=== PATIENT | female | born 1955 | race Caucasian/White ===

== ENCOUNTER 2021-02-25 18:47 | Inpatient (IN) ==
[2021-02-25] MEDS ORDERED: MoRPHine SULFATE 4 MG/ML 1 ML CARP\\VIAL IV STA ×2 (19:08→20:45)
[2021-02-25] MEDS ORDERED: SODIUM CHLORIDE 0.9% 500 ML IV STA (19:08)
--- NOTE | 2021-02-25 19:15 | Emergency Department Note ---
Impression & Plan Fall, Leg paresthesia, Leukocytosis ED Provider Note NAME: AARON LUTZ AGE: 65 SEX: F : 1955 ARRIVES VIA: Walk-In INFORMANT: Patient ED PROVIDER(S): Shahriar Zee DO CHIEF COMPLAINT: Hip pain and back pain HPI: Patient is a 65-year-old female who presents to ER for lower back pain and right hip pain. Patient notes that she fell today as her legs were too weak. She has been following with Dr. Daniel. Patient had 2 MRIs recently. Her right leg has gone completely numb in the past 2 weeks. She denies hitting her head or neck. No head or neck pain. No chest pain. No shortness of breath. Pain is with flexion extension of the right hip. Denies any numbness in the groin. Able to urinate and move bowels. ROS: See above HPI for pertinent positives & negatives. A total of 10 systems reviewed and were otherwise negative. PAST MEDICAL HISTORY:See Below PAST SURGICAL HISTORY:See Below FAMILY HISTORY:See Below SOCIAL HISTORY:See Below HOME MEDICATIONS:See Below ALLERGIES:See Below VITALS:See Below PHYSICAL EXAMINATION: GENERAL: Sitting up in bed, alert, well appearing, well nourished, no distress, non-toxic HEAD: NC/AT EYE EXAM: normal conjunctiva. PERRL and EOM's grossly intact. OROPHARYNX: no exudate, no erythema, lips, buccal mucosa, and tongue normal and mucous membranes are moist NECK: supple, no nuchal rigidity, no adenopathy, non-tender LUNGS: Clear to auscultation. Normal chest wall mechanics HEART: no murmurs, S1 normal and S2 normal ABDOMEN: abdomen soft, non-tender, normo-active bowel sounds, no masses, no re bound or guarding. BACK: Back is symmetrical on inspection and there is no deformity, midline tende rness in lower lumbar region UPPER EXTREMITIES: upper extremities are grossly normal. LOWER EXTREMITIES: Flexion and extension of the hips, knees, ankles, and EHL 5/5 bilaterally with exception of the right hip. Unable to evaluate secondary to pain. Gross sensation is intact. DPs are 2/4 bilateral. Unable to obtain patellar and Achilles reflexes NEURO EXAM: Normal sensorium, cranial nerves II-XII grossly intact, normal speech, no gross weakness of arms, no gross weakness of legs. MEDICAL DECISION MAKING: Patient is a six 5-year-old female who presents ER for chronic back pain associated with new worsening right leg pain and weakness. She tried to get up out of a chair today and she fell onto her right leg. She has had new numbness which is been present for the past 2 weeks in the right leg. IV was established blood work obtained. Labs show leukocytosis 20,000. No significant anemia. BMP slightly elevated BUN which I favor secondary to the steroids and I favor this likely cause of leukocytosis. No fevers. CT lumbar spine and x-ray of the pelvis and hip were unremarkable. Discussed with Cheyenne Fajardo from your [facility] as this patient already follows with them. Agreeable to following tomorrow morning. Discussed with Dr. Avelar for further evaluation. Observation Status: Indication: back pain Patient with no relevant family history, was seen first at 1840 hrs and was necessary in order to determine medical stability and avoid unnecessary admission. Upon reevaluation, 4.5 hours of observation revealed that the patient should be admitted. She after multiple doses of narcotics was still unable to get up and move. Disposition date and time 02/25/21 at 2250. Triage Nursing notes reviewed. Limited review of prior medical records performed Vital Signs: reviewed and remarkable for no significant abnormalities Differential diagnosis: Differential diagnoses includes but is not limited to lumbar radiculopathy, kidney stone, muscle strain, facture, cauda equina, mass, and disc herniation. ER treatment provided: See below Diagnostics interpreted by me: ECG: none Cardiac Monitoring: An order was placed for continuous cardiac monitoring. The monitor shows a rate of 70 with sinus rhythm. Laboratory studies: As stated above and show below. Imaging studies: CT lumbar spine was unremarkable X-ray of the hip and pelvis was unremarkable Consultation(s): As discussed above Procedures: none Critical Care: None Past Med/Surg History Social History Smoking Status: Never smoker Feels Safe at Home: Yes Allergies Allergies Allergy/AdvReac Type Severity Reaction Status Date / Time Sulfa (Sulfonamide AdvReac NAUSEA/VOMI Verified 02/25/21 19:47 Antibiotics) TING Home Meds Home Medications Medication Instructions Recorded Confirmed Otc Sleep Aide 1 tab PO HS PRN 02/25/21 02/25/21 acetaminophen [Tylenol Arthritis] 1,300 mg PO Q12H 02/25/21 02/25/21 baclofen 10 mg PO TID 02/25/21 02/25/21 chlorthalidone 25 mg PO DAILY 02/25/21 02/25/21 diclofenac sodium 75 mg PO BID 02/25/21 02/25/21 gabapentin 300 mg PO QAM 02/25/21 02/25/21 gabapentin 600 mg PO HS 02/25/21 02/25/21 insulin NPH and regular human 40 unit SUBCUT BID 02/25/21 02/25/21 [Novolin 70/30 U-100 Insulin] liraglutide [Victoza 2-Dedrick] 1.8 mg SUBCUT DAILY 02/25/21 02/25/21 [id number]-nscuybhj-[id number] 1 tab PO DAILY 02/25/21 02/25/21 [Centrum Silver] pioglitazone 15 mg PO DAILY 02/25/21 02/25/21 prednisone 20 mg PO .TAPER UD 02/25/21 02/25/21 simvastatin 20 mg PO QPM 02/25/21 02/25/21 Results & Data (ED) Vital Signs Vital Signs - 24 hr 02/25/21 18:50 02/25/21 20:48 Temperature 36.4 C L 36.5 C Temperature Source Temporal Artery Scan Oral Pulse Rate 94 H 74 Pulse Rhythm Regular Respiratory Rate 18 14 Respiratory Depth Normal Blood Pressure 131/82 Blood Pressure [Left Arm] 154/74 H Blood Pressure Mean 98 Blood Pressure Mean [Left Arm] 100 Blood Pressure Position Sitting Blood Pressure Position [Left Arm] Sitting Pulse Oximetry 95 95 Oxygen Delivery Method Room Air Room Air Sepsis Recent Fever Within 48 Hours No Sepsis New/Unexplained Change in Mental Status No Sepsis Action Taken by Nursing No Action Required Laboratory Data Result diagrams: 02/25/21 19:30 02/25/21 19:30 Lab Results 02/25/21 02/25/21 02/25/21 Range/Units 19:30 19:30 21:55 WBC 20.05 H (4.8-10.8) K/uL RBC 5.15 (4.2-5.4) M/uL Hgb 16.7 H (12.0-16.0) g/dL Hct 47.6 H (37-47) % MCV 92.4 (80-100) fL MCH 32.4 (25-34) pg MCHC 35.1 (32-36) g/dL RDW Std Deviation 41.7 (36.4-46.3) fL RDW Coeff of Kinga 12.4 (11.5-14.5) % Plt Count 405 H (130-400) K/uL MPV 10.5 H (7.4-10.4) fL Immature Gran % (Auto) 0.6 % Neut % (Auto) 72.4 % Lymph % (Auto) 19.8 % [place] % (Auto) 6.6 % Eos % (Auto) 0.6 % Baso % (Auto) 0.0 % Neut # (Auto) 14.50 H (1.4-6.5) K/uL Lymph # (Auto) 3.97 H (1.2-3.4) K/uL [place] # (Auto) 1.33 H (0.11-0.59) K/uL Eos # (Auto) 0.12 (0-0.5) K/uL Baso # (Auto) 0.01 (0-0.2) K/uL Immature Gran # (Auto) 0.12 H (0.00-0.02) K/uL Sodium 136 (136-145) mmol/L Potassium (3.5-5.1) mmol/L Chloride 96 L (98-107) mmol/L Carbon Dioxide 31 (21-32) mmol/L Anion Gap 9.0 (3-11) BUN 43 H (7-18) mg/dl Creatinine 1.22 H (0.6-1.2) mg/dl Est Cr Clr Drug Dosing Not Reportable Est GFR ( Amer) 53.1 ml/min Est GFR (Non-Af Amer) 45.8 ml/min BUN/Creatinine Ratio 35.6 H (10-20) Glucose 270 H (70-99) mg/dl Calcium 9.8 (8.5-10.1) mg/dl COVID-19 Eval Order Covid19 at [facility] Administered Medications Discontinued Medications Sodium Chloride (Nss) 500 mls @ 999 mls/hr IV .Q31M STA Stop: 02/25/21 19:38 Last Infusion: 02/25/21 20:37 Dose: 0 mls/hr Documented by: [id number] Admin: 02/25/21 20:00 Dose: 999 mls/hr Documented by: [id number] Morphine Sulfate (Morphine Sulfate 4 Mg/Ml 1 Ml Carp\Vial) 4 mg IV NOW STA Stop: 02/25/21 19:09 Last Admin: 02/25/21 19:47 Dose: 4 mg Documented by: [id number] Morphine Sulfate (Morphine Sulfate 4 Mg/Ml 1 Ml Carp\Vial) 4 mg IV NOW STA Stop: 02/25/21 20:46 Last Admin: 02/25/21 20:58 Dose: 4 mg Documented by: [id number] Imaging Data Radiologist's Impression: Hip/Pelvis X-Ray 02/25/21 19:07 XR hip RT 2V w pelvis CLINICAL HISTORY: Right hip pain status post trauma COMPARISON: None. DISCUSSION: There are osteoarthritic changes present. No acute fractures or dislocations are visualized. There is a catheter projected over the left lower quadrant, possibly representing a peritoneal catheter. IMPRESSION: 1. No acute fractures or dislocations identified. ACT 112: Negative or not required by law. Electronically signed by: Bc Sanford M.D. 02/25/2021 7:46 PM Discharge Plan Visit Data Chief Complaint: Fall Stated Complaint: FALL ED Provider: Shahriar Zee Discharge Problem: Fall, Leg paresthesia, Leukocytosis Forms Stand Alone Forms: My [facility] Prescriptions Prescriptions: No Action pioglitazone 15 mg tablet 15 mg PO DAILY RF: 0 prednisone 20 mg tablet 20 mg PO .TAPER UD RF: 0 Novolin 70/30 U-100 Insulin 100 unit/mL (70-30) Suspension 40 unit SUBCUT BID RF: 0 chlorthalidone 25 mg tablet 25 mg PO DAILY RF: 0 acetaminophen [Tylenol Arthritis] 650 mg Tablet Extended Release 1,300 mg PO Q12H RF: 0 baclofen 10 mg tablet 10 mg PO TID RF: 0 simvastatin 20 mg tablet 20 mg PO QPM RF: 0 gabapentin 300 mg capsule 600 mg PO HS RF: 0 gabapentin 300 mg capsule 300 mg PO QAM RF: 0 diclofenac sodium 75 mg tablet,delayed release (DR/EC) 75 mg PO BID RF: 0 Centrum Silver Tablet 1 tab PO DAILY RF: 0 Victoza 2-Dedrick 0.6 mg/0.1 mL (18 mg/3 mL) Pen Injector 1.8 mg SUBCUT DAILY RF: 0 Otc Sleep Aide 1 tab PO HS PRN (Reason: Sleep) RF: 0 Discharge Problem: Fall Qualifiers: Encounter type: initial encounter Qualified Code(s): W19.XXXA - Unspecified fall, initial encounter Leukocytosis Qualifiers: Leukocytosis type: unspecified Qualified Code(s): D72.829 - Elevated white blood cell count, unspecified
--- NOTE | 2021-02-25 19:47 | XRay Report ---
XR hip RT 2V w pelvis CLINICAL HISTORY: Right hip pain status post trauma COMPARISON: None. DISCUSSION: There are osteoarthritic changes present. No acute fractures or dislocations are visualiz ed. There is a catheter projected over the left lower quadrant, possibly representing a peritoneal ca theter. IMPRESSION: 1. No acute fractures or dislocations identified. ACT 112: Negative or not required by law. Electronically signed by: Bc Sanford M.D. 02/25/2021 7:46 PM
[2021-02-25 19:49] LABS: Basophils # (auto) 0.01 K/uL (0-0.2); Eosinophils # (auto) 0.12 K/uL (0-0.5); Eosinophils % (auto) 0.6 %; Hematocrit (blood only) 47.6 % (37-47); Hemoglobin 16.7 g/dL (12.0-16.0); Immature Granulocytes # (auto) 0.12 K/uL (0.00-0.02); Immature Granulocytes % (auto) 0.6 %; Lymphocytes # (auto) 3.97 K/uL (1.2-3.4); Lymphocytes % (auto) 19.8 %; Mean Corpuscular Hemoglobin 32.4 pg (25-34); Mean Corpuscular Hgb Conc 35.1 g/dL (32-36); Mean Corpuscular Volume 92.4 fL (80-100); Mean Platelet Volume 10.5 fL (7.4-10.4); Monocytes # (auto) 1.33 K/uL (0.11-0.59); Monocytes % (auto) 6.6 %; Neutrophils % (auto) 72.4 %; Platelet Count 405 K/uL (130-400); RDW Coefficient of Variation 12.4 % (11.5-14.5); RDW Standard Deviation 41.7 fL (36.4-46.3); Red Blood Count 5.15 M/uL (4.2-5.4); White Blood Count 20.05 K/uL (4.8-10.8)
[2021-02-25 20:16] LABS: BUN Creatinine Ratio 35.6 (10-20); Blood Urea Nitrogen 43 mg/dl (7-18); Calcium 9.8 mg/dl (8.5-10.1); Carbon Dioxide 31 mmol/L (21-32); Chloride 96 mmol/L (98-107); Est GFR (African American) 53.1 ml/min; Est GFR (Non-African American) 45.8 ml/min; Glucose 270 mg/dl (70-99); Sodium 136 mmol/L (136-145)
[2021-02-26] MEDS ORDERED: POLYETHYLENE (MIRALAX) 17 GM PACK PO PRN (00:33)
[2021-02-26] MEDS ORDERED: SODIUM CHLORIDE 0.9% 1,000 ML IV SCH (00:33)
[2021-02-26] MEDS ORDERED: ONDANSETRON INJ 2 MG/ML 2 ML VIAL IV PRN (00:33)
--- NOTE | 2021-02-26 00:54 | History and Physical Report ---
DATE OF ADMISSION: 02/25/2021 CHIEF COMPLAINT: Severe back pain. HISTORY OF PRESENT ILLNESS: A 65-year-old female with past medical history significant for type 2 diabetes, hyperlipidemia, obstructive sleep apnea, hypertension, morbid obesity, vitamin D deficiency, GERD, sacroiliac inflammation, primary osteoarthritis of both knees, comes because of fall. The patient is having ongoing severe back pain and the numbness of the lower extremities, which started 2 weeks ago. Numbness worse on the right leg. She saw orthopedics and had recent 2 MRI scans and she has a followup appointment. But today because of ongoing pain and numbness getting worse, she ambulates with a walker and she fell at home and after that she could not ambulate, so she came to the ER. CAT scan was unremarkable. ER talked to orthopedics and they are going to evaluate the patient in the morning. Currently sitting in a chair. From last 2 weeks she was only ambulating to the bathroom and back with a walker, but now she could not ambulate because of severe pain in the leg and numbness in lower extremities. Denies any incontinence. No abdominal pain, no diarrhea or constipation. Normal bladder movements. No chest pain, no shortness of breath, no cough, no fever, no chills, no abdominal pain. Appetite is okay. No headache, no blurred vision, no earache, no runny nose, no sore throat. Currently resting comfortably and hemodynamically stable. ALLERGIES: SULFA ANTIBIOTICS. PAST MEDICAL HISTORY: As mentioned above. PAST SURGICAL HISTORY: Left total knee arthroplasty, brachial shunt for drainage, hydrocephalus, hole placed in the neck. The patient had hysterectomy. MEDICATIONS: The patient is on Tylenol 500 mg p.o. q.12 hours, Baclofen 10 mg p.o. t.i.d., chlorthalidone 25 mg p.o. daily, diclofenac sodium 75 mg p.o. b.i.d., gabapentin 600 mg at bedtime, gabapentin 300 mg p.o. a.m., insulin Novolin 70/30, 40 units b.i.d., Victoza 1.8 mg subcutaneous daily, multivitamins 1 tablet daily, pioglitazone 15 mg p.o. daily, prednisone 20 mg daily, simvastatin 20 mg p.o. p.m. FAMILY HISTORY: Significant for father had cancer. Mother had heart disease. Brother has lung cancer. Mother was a smoker. SOCIAL HISTORY: . No smoking, no alcohol, no drug use. REVIEW OF SYMPTOMS: As per HPI. Rest of review of systems negative. PHYSICAL EXAMINATION: GENERAL: The patient is of moderate build, not in acute distress. VITAL SIGNS: Temperature 36.5, pulse 74, respiratory rate 14, blood pressure 154/74, oxygen 95% on room air. HEENT: Pupils equal, round, and reactive to light. NECK: No JVD. No neck masses. CARDIOVASCULAR: S1, S2 heard, regular rate and rhythm, no murmur, no gallop. RESPIRATORY SYSTEM: Normal AP diameter. No accessory muscle use. No wheezing, no crackles. ABDOMEN: Soft, bowel sounds present, nontender. No distention. CENTRAL NERVOUS SYSTEM: Cranial nerves II-XII are grossly intact. EXTREMITIES: No edema. Painful movements of the lower extremities. LABORATORY DATA: WBC 10.3, hemoglobin 16.7, hematocrit 47.6, platelets 405. Sodium 133, , bicarbonate 31, BUN 43, creatinine 1.22, serum glucose 270. Calcium 9.8. Hip and pelvic x-ray -- no acute fractures or dislocations identified. Lumbar spine CT, no acute findings. Multilevel thoracolumbar spondylosis. ASSESSMENT AND PLAN: This is a 65-year-old female who presents with severe back pain. 1. Severe back pain and also ongoing numbness of her lower extremities 2 weeks and ambulatory dysfunction, fall at home, follows with spine surgery. Because of her ambulatory dysfunction and pain we will admit to the medical floor. Pain control, n.p.o. after midnight for any procedures in the morning. Continue prednisone taper. Consult orthopedics and gentle fluids. 2. Diabetes. We will hold Victoza. Hold pioglitazone. We will cut back on Novolin 70/30 to 20 units b.i.d. as the patient is currently n.p.o., insulin sliding scale, follow HbA1c and follow the blood sugars. 3. History of hypertension. Continue chlorthalidone. 4. Hyperlipidemia. Continue statin. 5. History of obstructive sleep apnea. 6. Deep venous thrombosis prophylaxis, sequential compression devices. DISPOSITION: Admit to medical floor. Expect to discharge home and follow with family doctor. PT and OT prior to discharge. Social service to help with discharge planning. KATHIE
[2021-02-26] MEDS: HYDROmorphone INJ 0.5 MG/0.5 ML SYR IV PRN ×5 (01:11→21:44)
[2021-02-26] MEDS: INSULIN ASPART 100 UNITS/ML 3 ML PEN SC SCH ×5 (01:55→20:44)
[2021-02-26 05:48] LABS: Basophils # (auto) 0.02 K/uL (0-0.2); Basophils % (auto) 0.1 %; Eosinophils # (auto) 0.21 K/uL (0-0.5); Hematocrit (blood only) 43.1 % (37-47); Hemoglobin 15.2 g/dL (12.0-16.0); Immature Granulocytes # (auto) 0.13 K/uL (0.00-0.02); Immature Granulocytes % (auto) 0.6 %; Lymphocytes # (auto) 4.35 K/uL (1.2-3.4); Mean Corpuscular Hemoglobin 32.4 pg (25-34); Mean Corpuscular Hgb Conc 35.3 g/dL (32-36); Mean Corpuscular Volume 91.9 fL (80-100); Mean Platelet Volume 10.2 fL (7.4-10.4); Monocytes # (auto) 1.94 K/uL (0.11-0.59); Monocytes % (auto) 8.9 %; Neutrophils # (auto) 15.15 K/uL (1.4-6.5); Neutrophils % (auto) 69.4 %; Platelet Count 359 K/uL (130-400); RDW Coefficient of Variation 12.5 % (11.5-14.5); RDW Standard Deviation 41.8 fL (36.4-46.3); Red Blood Count 4.69 M/uL (4.2-5.4)
[2021-02-26] MEDS: NYSTATIN POWDER 15GM BTL EXT PRN ×2 (05:53→21:00)
[2021-02-26 06:19] LABS: BUN Creatinine Ratio 51.8 (10-20); Calcium 8.8 mg/dl (8.5-10.1); Creatinine Clr Calc Pharmacy 91.6 ml/min; Est GFR (African American) 104.4 ml/min; Est GFR (Non-African American) 90.1 ml/min; Magnesium 2.3 mg/dl (1.8-2.4); Potassium 2.6 mmol/L (3.5-5.1)
[2021-02-26] MEDS ORDERED: POTASSIUM CHLORIDE CRTAB 20 MEQ TABCR PO STA (07:34)
--- NOTE | 2021-02-26 07:49 | Hospitalist Progress Note ---
Date of Service February 26, 2021 Assessment & Plan (1) Lumbar stenosis with neurogenic claudication: (2) Fall: (3) Leg paresthesia: (4) Leukocytosis: This is a 65-year-old female who presents with severe back pain. 1. Severe back pain and also ongoing numbness of her lower extremities for 2 weeks and ambulatory dysfunction, fall at home, follows with spine surgery. Because of her ambulatory dysfunction, admitted to the medical floor. Pain control gentle fluids. Will stop prednisone taper. Consulted orthopedics - Options have been reviewed with the patient including continuing conservative care versus ultimate surgical fixation. Surgery would involve multilevel lumbar decompression and fusion. This would most likely involve L2 through L5, possible L5-S1 decompression and fusion. Risks, benefits, pros cons and alternatives have been outlined in detail with the patient. She states quality of life is affected daily. She wants to pursue surgical intervention. We will make sure she is medically optimized. Anticipate surgery within the next couple of days. 2. Diabetes. We will hold Victoza. Hold pioglitazone. We will cut back on Novolin 70/30 to 20 units b.i.d. as the patient n.p.o. on admission, insulin sliding scale, follow HbA1c and follow the blood sugars. Increase insulin to 30 BID, as there is no procedure planned for now, likely in 2 days, also pt has poor appetite 3. History of hypertension. Continue chlorthalidone. 4. Hyperlipidemia. Continue statin. 5. History of obstructive sleep apnea. DVT prophylaxis, SCDs. DISPOSITION: PT and OT prior to discharge. Social service to help with discharge planning. Admission and Anticipated Discharge Date Admission Date: February 25, 2021 Subjective Patient seen in follow-up of back pain, lower extremity numbness Currently she is lying in bed, in no acute distress, somewhat uncomfortable because she was moving previously No fevers, chills, chest pain, shortness of breath Seen by orthopedics this morning, plan for surgery on Saturday Review of Systems Review of Systems: All systems reviewed & are unremarkable except as noted in HPI & below Constitutional: no fever and no chills Respiratory: no cough and no dyspnea Cardiovascular: no chest pain and no palpitations Gastrointestinal: no abdominal pain, no nausea and no vomiting Physical Exam Physical Exam: GENERAL: morbidly obese F, laying in bed, not in acute distress but uncomfortable d/t pain. HEENT: NC/AT, EOMI, Pupils equal, round, and reactive to light. NECK: No JVD. No neck masses. CARDIOVASCULAR: S1, S2 heard, regular rate and rhythm, no murmur, no gallop. RESPIRATORY: Normal AP diameter. No accessory muscle use. No wheezing, no crackles. ABDOMEN: Soft, bowel sounds present, nontender. No distention. NEURO: alert and oriented x3, no facial asymmetry, moves extremities, some mild sensory loss on the right mcnulty, quadricep weakness (3+ strength) on the right compared to left (5) EXTREMITIES: No edema. Painful movements of the lower extremities. Results & Data Results & Data ([facility]) Vital Signs (Past 12 Hours) Vital Signs Temp Pulse Pulse Resp BP BP Pulse Ox 02/26/21 07:28 36.8 C 86 18 112/69 95 02/26/21 00:40 96 H 18 105/78 99 02/26/21 00:35 36.6 C 98 H 18 136/81 99 02/25/21 23:12 91 H 18 131/88 97 02/25/21 20:48 36.5 C 74 14 154/74 H 95 Laboratory Results 02/26/21 02/26/21 02/26/21 Range/Units 05:47 05:19 05:19 WBC (4.8-10.8) K/uL RBC (4.2-5.4) M/uL Hgb (12.0-16.0) g/dL Hct (37-47) % MCV (80-100) fL MCH (25-34) pg MCHC (32-36) g/dL RDW Std Deviation (36.4-46.3) fL RDW Coeff of Kinga (11.5-14.5) % Plt Count (130-400) K/uL MPV (7.4-10.4) fL Immature Gran % (Auto) % Neut % (Auto) % Lymph % (Auto) % [place] % (Auto) % Eos % (Auto) % Baso % (Auto) % Neut # (Auto) (1.4-6.5) K/uL Lymph # (Auto) (1.2-3.4) K/uL [place] # (Auto) (0.11-0.59) K/uL Eos # (Auto) (0-0.5) K/uL Baso # (Auto) (0-0.2) K/uL Immature Gran # (Auto) (0.00-0.02) K/uL Sodium 138 (136-145) mmol/L Potassium 2.6 L (3.5-5.1) mmol/L Chloride 99 (98-107) mmol/L Carbon Dioxide 33 H (21-32) mmol/L Anion Gap 6.0 (3-11) BUN 36 H (7-18) mg/dl Creatinine 0.69 D (0.6-1.2) mg/dl Est Cr Clr Drug Dosing 91.6 Est GFR ( Amer) 104.4 ml/min Est GFR (Non-Af Amer) 90.1 ml/min BUN/Creatinine Ratio 51.8 H (10-20) Glucose 205 H (70-99) mg/dl POC Glucose 217 H (70-99) mg/dl Estimat Average Glucose Pending Hemoglobin A1c Pending Calcium 8.8 (8.5-10.1) mg/dl Magnesium 2.3 (1.8-2.4) mg/dl COVID-19 Eval Order SARS-CoV-2 (PCR) (Negative) 02/26/21 02/26/21 02/25/21 Range/Units 05:19 01:26 21:55 WBC 21.80 H (4.8-10.8) K/uL RBC 4.69 (4.2-5.4) M/uL Hgb 15.2 (12.0-16.0) g/dL Hct 43.1 (37-47) % MCV 91.9 (80-100) fL MCH 32.4 (25-34) pg MCHC 35.3 (32-36) g/dL RDW Std Deviation 41.8 (36.4-46.3) fL RDW Coeff of Kinga 12.5 (11.5-14.5) % Plt Count 359 (130-400) K/uL MPV 10.2 (7.4-10.4) fL Immature Gran % (Auto) 0.6 % Neut % (Auto) 69.4 % Lymph % (Auto) 20.0 % [place] % (Auto) 8.9 % Eos % (Auto) 1.0 % Baso % (Auto) 0.1 % Neut # (Auto) 15.15 H (1.4-6.5) K/uL Lymph # (Auto) 4.35 H (1.2-3.4) K/uL [place] # (Auto) 1.94 H (0.11-0.59) K/uL Eos # (Auto) 0.21 (0-0.5) K/uL Baso # (Auto) 0.02 (0-0.2) K/uL Immature Gran # (Auto) 0.13 H (0.00-0.02) K/uL Sodium (136-145) mmol/L Potassium (3.5-5.1) mmol/L Chloride (98-107) mmol/L Carbon Dioxide (21-32) mmol/L Anion Gap (3-11) BUN (7-18) mg/dl Creatinine (0.6-1.2) mg/dl Est Cr Clr Drug Dosing Est GFR ( Amer) ml/min Est GFR (Non-Af Amer) ml/min BUN/Creatinine Ratio (10-20) Glucose (70-99) mg/dl POC Glucose 259 H (70-99) mg/dl Estimat Average Glucose Hemoglobin A1c Calcium (8.5-10.1) mg/dl Magnesium (1.8-2.4) mg/dl COVID-19 Eval Order SARS-CoV-2 (PCR) NEGATIVE (Negative) 02/25/21 02/25/21 02/25/21 Range/Units 21:55 19:30 19:30 WBC 20.05 H (4.8-10.8) K/uL RBC 5.15 (4.2-5.4) M/uL Hgb 16.7 H (12.0-16.0) g/dL Hct 47.6 H (37-47) % MCV 92.4 (80-100) fL MCH 32.4 (25-34) pg MCHC 35.1 (32-36) g/dL RDW Std Deviation 41.7 (36.4-46.3) fL RDW Coeff of Kinga 12.4 (11.5-14.5) % Plt Count 405 H (130-400) K/uL MPV 10.5 H (7.4-10.4) fL Immature Gran % (Auto) 0.6 % Neut % (Auto) 72.4 % Lymph % (Auto) 19.8 % [place] % (Auto) 6.6 % Eos % (Auto) 0.6 % Baso % (Auto) 0.0 % Neut # (Auto) 14.50 H (1.4-6.5) K/uL Lymph # (Auto) 3.97 H (1.2-3.4) K/uL [place] # (Auto) 1.33 H (0.11-0.59) K/uL Eos # (Auto) 0.12 (0-0.5) K/uL Baso # (Auto) 0.01 (0-0.2) K/uL Immature Gran # (Auto) 0.12 H (0.00-0.02) K/uL Sodium 136 (136-145) mmol/L Potassium (3.5-5.1) mmol/L Chloride 96 L (98-107) mmol/L Carbon Dioxide 31 (21-32) mmol/L Anion Gap 9.0 (3-11) BUN 43 H (7-18) mg/dl Creatinine 1.22 H (0.6-1.2) mg/dl Est Cr Clr Drug Dosing Not Reportable Est GFR ( Amer) 53.1 ml/min Est GFR (Non-Af Amer) 45.8 ml/min BUN/Creatinine Ratio 35.6 H (10-20) Glucose 270 H (70-99) mg/dl POC Glucose (70-99) mg/dl Estimat Average Glucose Hemoglobin A1c Calcium 9.8 (8.5-10.1) mg/dl Magnesium (1.8-2.4) mg/dl COVID-19 Eval Order Covid19 at [facility] SARS-CoV-2 (PCR) (Negative) Medications Administered Current Inpatient Medications Acetaminophen (Acetaminophen 325 Mg Tab) 650 mg PO Q4H PRN PRN Reason: pain/fever Stop: 03/28/21 00:32 Baclofen (Baclofen 10 Mg Tab) 10 mg PO TID GARY Stop: 03/28/21 08:59 Chlorthalidone (Chlorthalidone 25 Mg Tab) 25 mg PO DAILY GARY Stop: 03/28/21 08:59 Gabapentin (Gabapentin 300 Mg Cap) 600 mg PO HS GARY Stop: 03/28/21 20:59 Gabapentin (Gabapentin 300 Mg Cap) 300 mg PO QAM GARY Stop: 03/28/21 08:59 Hydromorphone HCl (Hydromorphone Inj 0.5 Mg/0.5 Ml Syr) 0.5 mg IV Q3H PRN PRN Reason: Pain Stop: 03/12/21 00:32 Last Admin: 02/26/21 07:38 Dose: 0.5 mg Documented by: Sodium Chloride (Nss 1000ml) 1,000 mls @ 80 mls/hr IV .[id number] [facility] Stop: 02/26/21 13:02 Last Admin: 02/26/21 01:06 Dose: 80 mls/hr Documented by: Potassium Chloride (K Isaias / Wtr) 10 meq in 100 mls @ 100 mls/hr IV Q1H [facility] Stop: 02/26/21 09:59 Insulin Aspart (Insulin Aspart 100 Units/Ml 3 Ml Pen) 0 units SC Q6 [facility] Stop: 03/28/21 01:14 Last Admin: 02/26/21 05:53 Dose: 3 units Documented by: Insulin Human Isoph/Insulin Regular (Insulin Human 70% Nph/30% Regular) 20 units SC BIDM [facility] Stop: 03/28/21 07:59 Multivitamins/Minerals (Cerovite Adv Formula Tab) 1 tab PO DAILY [facility] Stop: 03/28/21 08:59 Nystatin (Nystatin Powder 15gm Btl) 1 appln EXT PRN PRN PRN Reason: Affected Skin Folds Stop: 03/28/21 02:51 Last Admin: 02/26/21 05:53 Dose: 1 appln Documented by: Ondansetron HCl (Ondansetron Inj 2 Mg/Ml 2 Ml Vial) 4 mg IV Q6H PRN PRN Reason: Nausea Stop: 03/28/21 00:32 Polyethylene Glycol (Polyethylene (Miralax) 17 Gm Pack) 17 gm PO DAILY PRN PRN Reason: Constipation Stop: 03/28/21 00:32 Prednisone (Prednisone 20 Mg Tab) 20 mg PO DAILY [facility]; Taper Stop: 03/02/21 08:59 Simvastatin (Simvastatin 20 Mg Tab) 20 mg PO QPM [facility] Stop: 03/28/21 20:59 (1) Fall Encounter type: initial encounter Qualified Code(s): W19.XXXA - Unspecified fall, initial encounter (2) Leukocytosis Leukocytosis type: unspecified Qualified Code(s): D72.829 - Elevated white blood cell count, unspecified
[2021-02-26] MEDS ORDERED: INSULIN HUMAN 70% NPH/30% REGULAR SC SCH ×2 (08:00→09:00)
--- NOTE | 2021-02-26 08:24 | CT Scan Report ---
CT lumbar spine wo con CT DOSE: 685.78 mGy.cm CLINICAL HISTORY: severe lower back pain s/p fall TECHNIQUE: Helical images were acquired in transverse plane. Reformatted sagittal and coronal images were reviewed. A dose lowering technique was utilized adhering to the principles of ALARA. CONTRAST: No contrast was administered COMPARISON STUDY: None. FINDINGS: There is a posterior disc osteophyte complex the T12-L1 level with mild spinal canal narrowing. L1-2 level: There is a mild circumferential disc bulge. There is facet joint arthropathy. There is mi ld spinal canal narrowing. There is no significant foraminal narrowing. L2-3 level: There is a circumferential disc bulge. There is facet joint arthropathy. There is moderat e to severe spinal stenosis. There is no significant foraminal narrowing. L3-4 level: There is a circumferential disc bulge. There is facet joint arthropathy. There is severe spinal stenosis. There is mild bilateral foraminal narrowing. L4-5 level: There is a posterior disc osteophyte complex. There is facet joint arthropathy. There is moderate spinal stenosis. There is mild bilateral foraminal narrowing. L5-S1 level: There is a posterior disc osteophyte complex. There is minor spinal canal narrowing. The re is mild bilateral foraminal narrowing. IMPRESSION: 1. No evidence of acute fracture or traumatic subluxation 2. Advanced multilevel spondylytic changes with significant multilevel spinal stenosis.. ACT 112: Negative or not required by law. Electronically signed by: Bc Sanford M.D. 02/26/2021 8:23 AM
[2021-02-26] MEDS: GABAPENTIN 300 MG CAP PO SCH ×2 (08:29→20:42)
[2021-02-26] MEDS: BACLOFEN 10 MG TAB PO SCH ×3 (08:29→20:42)
[2021-02-26] MEDS: CHLORTHALIDONE 25 MG TAB PO SCH (08:29)
[2021-02-26] MEDS: CEROVITE ADV FORMULA TAB PO SCH (08:30)
[2021-02-26] MEDS: POTASSIUM CHLORIDE / WTR 10 MEQ/100 ML PLCT IV SCH ×2 (08:30→09:45)
--- NOTE | 2021-02-26 08:34 | Consultation ---
Date of Consultation February 26, 2021 Assessment & Plan (1) Lumbar stenosis with neurogenic claudication: Options have been reviewed with the patient including continuing conservative care versus ultimate surgical fixation. Surgery would involve multilevel lumbar decompression and fusion. This would most likely involve L2 through L5, possible L5-S1 decompression and fusion. Risks, benefits, pros cons and alternatives have been outlined in detail with the patient. She states quality of life is affected daily. She wants to pursue surgical intervention. We will make sure she is medically optimized. Anticipate surgery within the next couple of days. Supervising Physician Co-Signing Physician Notes Dr. Abner Daniel History of Present Illness This is a 65-year-old female well-known to our practice. She presented to the emergency room yesterday after declining over the past 2 weeks. She reports pain in the back and predominantly right lower extremity including groin over the past couple weeks that have caused her to fall. She feels her legs are weak and giving out on her when she ambulates. Denies bowel or bladder dysfunction. She has undergone a caudal injection by Dr. Guy at [facility] on January 05 but really reported very little relief. She is also seen Kurt randle PA-C at [facility] spine who referred her to pain management. Attending Physician: Casper Bergeron MD Allergies Allergy/AdvReac Type Severity Reaction Status Date / Time Sulfa (Sulfonamide AdvReac NAUSEA/VOMI Verified 02/25/21 19:47 Antibiotics) TING Home Medications Medication Instructions Recorded Confirmed Type Otc Sleep Aide 1 tab PO HS PRN 02/25/21 02/25/21 History acetaminophen [Tylenol Arthritis] 1,300 mg PO Q12H 02/25/21 02/25/21 History baclofen 10 mg PO TID 02/25/21 02/25/21 History chlorthalidone 25 mg PO DAILY 02/25/21 02/25/21 History diclofenac sodium 75 mg PO BID 02/25/21 02/25/21 History gabapentin 300 mg PO QAM 02/25/21 02/25/21 History gabapentin 600 mg PO HS 02/25/21 02/25/21 History insulin NPH and regular human 40 unit SUBCUT BID 02/25/21 02/25/21 History [Novolin 70/30 U-100 Insulin] liraglutide [Victoza 2-Dedrick] 1.8 mg SUBCUT DAILY 02/25/21 02/25/21 History [id number] 1 tab PO DAILY 02/25/21 02/25/21 History [Centrum Silver] pioglitazone 15 mg PO DAILY 02/25/21 02/25/21 History prednisone 20 mg PO .TAPER UD 02/25/21 02/25/21 History simvastatin 20 mg PO QPM 02/25/21 02/25/21 History Patient History Social History Smoking Status: Never smoker Hx Alcohol Use: No Hx Substance Use: No Preferred Language: Lithuanian Communication Ability: Effective Tassel Clipper Required: No Beliefs That Will Affect Care: None Current Living Situation: Alone Feels Safe at Home: Yes Assistive Devices: Walker Assistive Devices Comment: Recently started using walker Review of Systems Review of Systems: All systems reviewed & are unremarkable except as noted in HPI & below Physical Exam Physical Exam: She is lying flat in bed. No acute distress. Negative logrolling bilaterally. Negative tension signs bilaterally. Breakaway weakness over the right quadricep. 5/5 bilateral EHL, dorsiflexion, plantarflexion, hamstrings, hip flexors Calves are soft nontender bilaterally. Constitutional: well developed Eyes: normal visual ku by confrontation ENMT: external ear and nose normal, oropharynx normal Neck: normal visual inspection Respiratory: normal respiratory effort Cardiovascular: Extremities: normal capillary refill Chest (Breasts): Chest: normal inspection of chest Gastrointestinal (Abdomen): Inspection/Auscultation: abdomen normal to inspection Musculoskeletal: see above Skin: no rashes, warm and dry Neurologic: normal touch/pain/proprioception Psychiatric: A+Ox3, euthymic affect Results & Data ([facility]) Vital Signs (Past 12 Hours) Vital Signs Temp Pulse Pulse Resp BP BP Pulse Ox 02/26/21 07:28 36.8 C 86 18 112/69 95 02/26/21 00:40 96 H 18 105/78 99 02/26/21 00:35 36.6 C 98 H 18 136/81 99 02/25/21 23:12 91 H 18 131/88 97 02/25/21 20:48 36.5 C 74 14 154/74 H 95
[2021-02-26] MEDS ORDERED: predniSONE 20 MG TAB PO SCH (09:00)
[2021-02-26 16:46] LABS: BUN Creatinine Ratio 34.7 (10-20); Calcium 9.4 mg/dl (8.5-10.1); Est GFR (African American) 102.2 ml/min; Est GFR (Non-African American) 88.1 ml/min
[2021-02-26 17:42] LABS: Magnesium 2.4 mg/dl (1.8-2.4)
[2021-02-26] MEDS: INSULIN HUMAN 70% NPH/30% REGULAR SC SCH (18:09)
[2021-02-26] MEDS: ACETAMINOPHEN 325 MG TAB PO PRN ×2 (18:16→23:42)
[2021-02-26] MEDS: SIMVASTATIN 20 MG TAB PO SCH (20:42)
[2021-02-27] MEDS: HYDROmorphone INJ 0.5 MG/0.5 ML SYR IV PRN ×6 (03:03→22:09)
[2021-02-27 06:31] LABS: Hematocrit (blood only) 45.5 % (37-47); Hemoglobin 15.8 g/dL (12.0-16.0); Mean Corpuscular Hemoglobin 32.1 pg (25-34); Mean Corpuscular Hgb Conc 34.7 g/dL (32-36); Mean Corpuscular Volume 92.5 fL (80-100); Mean Platelet Volume 10.2 fL (7.4-10.4); Platelet Count 356 K/uL (130-400); RDW Coefficient of Variation 12.4 % (11.5-14.5); RDW Standard Deviation 41.7 fL (36.4-46.3); Red Blood Count 4.92 M/uL (4.2-5.4); White Blood Count 17.89 K/uL (4.8-10.8)
[2021-02-27 07:06] LABS: BUN Creatinine Ratio 26.9 (10-20); Calcium 9.4 mg/dl (8.5-10.1); Creatinine Clr Calc Pharmacy 82.1 ml/min; Est GFR (African American) 92.6 ml/min; Est GFR (Non-African American) 79.9 ml/min; Magnesium 2.4 mg/dl (1.8-2.4); Potassium 3.2 mmol/L (3.5-5.1)
[2021-02-27 07:15] LABS: Estimated Average Glucose 177 mg/dl; Hemoglobin A1C 7.8 % (4.5-5.6)
--- NOTE | 2021-02-27 07:44 | Hospitalist Progress Note ---
Date of Service February 27, 2021 Assessment & Plan (1) Lumbar stenosis with neurogenic claudication: (2) Fall: (3) Leg paresthesia: (4) Leukocytosis: This is a 65-year-old female who presents with severe back pain. 1. Severe back pain and also ongoing numbness of her lower extremities for 2 weeks and ambulatory dysfunction, fall at home, follows with spine surgery. Because of her ambulatory dysfunction, admitted to the medical floor. Pain control gentle fluids. stop prednisone taper. Consulted orthopedics - Options have been reviewed with the patient including continuing conservative care versus ultimate surgical fixation. Surgery would involve multilevel lumbar decompression and fusion. This would most likely involve L2 through L5, possible L5-S1 decompression and fusion. Risks, benefits, pros cons and alternatives have been outlined in detail with the patient. She states quality of life is affected daily. She wants to pursue surgical intervention. We will make sure she is medically optimized. Anticipate surgery within the next couple of days. 2. Diabetes. We will hold Victoza. Hold pioglitazone. Current A1c 7.8% Initially cut back on Novolin 70/30 to 20 units b.i.d. as the patient n.p.o. on admission, insulin sliding scale, follow the blood sugars. Increased insulin to 30 BID, as there is no procedure planned for now, likely tomorrow (02/27) 3. History of hypertension. Continue chlorthalidone. 4. Hyperlipidemia. Continue statin. 5. History of obstructive sleep apnea. DVT prophylaxis, SCDs. DISPOSITION: PT and OT prior to discharge. Social service to help with discharge planning. Admission and Anticipated Discharge Date Admission Date: February 25, 2021 Subjective Patient seen in follow-up of back pain, lower extremity numbness Currently she is sitting in the chair, in no acute distress, but somewhat uncomfortable due to pain No fevers, chills, chest pain, shortness of breath Seen by orthopedics, plan for surgery on Saturday (tomorrow) Review of Systems Review of Systems: All systems reviewed & are unremarkable except as noted in HPI & below Constitutional: no fever and no chills Respiratory: no cough and no dyspnea Cardiovascular: no chest pain and no palpitations Gastrointestinal: no abdominal pain and no vomiting Physical Exam Physical Exam: GENERAL: morbidly obese F, not in acute distress but uncomfortable d/t pain. HEENT: NC/AT, EOMI, Pupils equal, round, and reactive to light. NECK: No JVD. No neck masses. CARDIOVASCULAR: S1, S2 heard, regular rate and rhythm, no murmur, no gallop. RESPIRATORY: Normal AP diameter. No accessory muscle use. No wheezing, no crackles. ABDOMEN: Soft, bowel sounds present, nontender. No distention. NEURO: alert and oriented x3, no facial asymmetry, moves extremities, some mild sensory loss on the right mcnulty, quadricep weakness (3+ strength) on the right compared to left (5) EXTREMITIES: No edema. Painful movements of the lower extremities. Results & Data Results & Data ([facility]) Vital Signs (Past 12 Hours) Vital Signs Temp Pulse Resp BP Pulse Ox 02/26/21 22:29 36.8 C 88 16 123/77 97 Laboratory Results 02/27/21 02/27/21 02/26/21 Range/Units 06:10 06:10 20:33 WBC 17.89 H (4.8-10.8) K/uL RBC 4.92 (4.2-5.4) M/uL Hgb 15.8 (12.0-16.0) g/dL Hct 45.5 (37-47) % MCV 92.5 (80-100) fL MCH 32.1 (25-34) pg MCHC 34.7 (32-36) g/dL RDW Std Deviation 41.7 (36.4-46.3) fL RDW Coeff of Kinga 12.4 (11.5-14.5) % Plt Count 356 (130-400) K/uL MPV 10.2 (7.4-10.4) fL Sodium Pending (136-145) mmol/L Potassium 3.2 L D (3.5-5.1) mmol/L Chloride 100 (98-107) mmol/L Carbon Dioxide 35 H (21-32) mmol/L Anion Gap 5.0 (3-11) BUN 21 H (7-18) mg/dl Creatinine 0.77 (0.6-1.2) mg/dl Est Cr Clr Drug Dosing 82.1 ml/min Est GFR ( Amer) 92.6 ml/min Est GFR (Non-Af Amer) 79.9 ml/min BUN/Creatinine Ratio 26.9 H (10-20) Glucose 108 H (70-99) mg/dl POC Glucose 228 H (70-99) mg/dl Estimat Average Glucose mg/dl Hemoglobin A1c (4.5-5.6) % Calcium 9.4 (8.5-10.1) mg/dl Magnesium 2.4 (1.8-2.4) mg/dl 02/26/21 02/26/21 02/26/21 Range/Units 17:18 17:02 15:53 WBC (4.8-10.8) K/uL RBC (4.2-5.4) M/uL Hgb (12.0-16.0) g/dL Hct (37-47) % MCV (80-100) fL MCH (25-34) pg MCHC (32-36) g/dL RDW Std Deviation (36.4-46.3) fL RDW Coeff of Kinga (11.5-14.5) % Plt Count (130-400) K/uL MPV (7.4-10.4) fL Sodium 132 L (136-145) mmol/L Potassium 4.0 D (3.5-5.1) mmol/L Chloride 98 (98-107) mmol/L Carbon Dioxide 26 (21-32) mmol/L Anion Gap 8.0 (3-11) BUN 25 H (7-18) mg/dl Creatinine 0.71 (0.6-1.2) mg/dl Est Cr Clr Drug Dosing 89.0 ml/min Est GFR ( Amer) 102.2 ml/min Est GFR (Non-Af Amer) 88.1 ml/min BUN/Creatinine Ratio 34.7 H (10-20) Glucose 265 H (70-99) mg/dl POC Glucose 254 H (70-99) mg/dl Estimat Average Glucose mg/dl Hemoglobin A1c (4.5-5.6) % Calcium 9.4 (8.5-10.1) mg/dl Magnesium 2.4 (1.8-2.4) mg/dl 02/26/21 02/26/21 Range/Units 12:08 05:19 WBC (4.8-10.8) K/uL RBC (4.2-5.4) M/uL Hgb (12.0-16.0) g/dL Hct (37-47) % MCV (80-100) fL MCH (25-34) pg MCHC (32-36) g/dL RDW Std Deviation (36.4-46.3) fL RDW Coeff of Kinga (11.5-14.5) % Plt Count (130-400) K/uL MPV (7.4-10.4) fL Sodium (136-145) mmol/L Potassium (3.5-5.1) mmol/L Chloride (98-107) mmol/L Carbon Dioxide (21-32) mmol/L Anion Gap (3-11) BUN (7-18) mg/dl Creatinine (0.6-1.2) mg/dl Est Cr Clr Drug Dosing ml/min Est GFR ( Amer) ml/min Est GFR (Non-Af Amer) ml/min BUN/Creatinine Ratio (10-20) Glucose (70-99) mg/dl POC Glucose 231 H (70-99) mg/dl Estimat Average Glucose 177 mg/dl Hemoglobin A1c 7.8 H (4.5-5.6) % Calcium (8.5-10.1) mg/dl Magnesium (1.8-2.4) mg/dl Medications Administered Current Inpatient Medications Acetaminophen (Acetaminophen 325 Mg Tab) 650 mg PO Q4H PRN PRN Reason: pain/fever Stop: 03/28/21 00:32 Last Admin: 02/26/21 23:42 Dose: 650 mg Documented by: Baclofen (Baclofen 10 Mg Tab) 10 mg PO TID GARY Stop: 03/28/21 08:59 Last Admin: 02/26/21 20:42 Dose: 10 mg Documented by: Chlorthalidone (Chlorthalidone 25 Mg Tab) 25 mg PO DAILY GARY Stop: 03/28/21 08:59 Last Admin: 02/26/21 08:29 Dose: 25 mg Documented by: Gabapentin (Gabapentin 300 Mg Cap) 600 mg PO HS GARY Stop: 03/28/21 20:59 Last Admin: 02/26/21 20:42 Dose: 600 mg Documented by: Gabapentin (Gabapentin 300 Mg Cap) 300 mg PO QAM GARY Stop: 03/28/21 08:59 Last Admin: 02/26/21 08:29 Dose: 300 mg Documented by: Hydromorphone HCl (Hydromorphone Inj 0.5 Mg/0.5 Ml Syr) 0.5 mg IV Q3H PRN PRN Reason: Pain Stop: 03/12/21 00:32 Last Admin: 02/27/21 06:20 Dose: 0.5 mg Documented by: Insulin Aspart (Insulin Aspart 100 Units/Ml 3 Ml Pen) 0 units SC ACHS GARY Stop: 03/28/21 11:29 Last Admin: 02/26/21 20:44 Dose: 3 units Documented by: Insulin Human Isoph/Insulin Regular (Insulin Human 70% Nph/30% Regular) 30 units SC BIDM GARY Stop: 03/28/21 16:59 Last Admin: 02/26/21 18:09 Dose: 30 units Documented by: Multivitamins/Minerals (Cerovite Adv Formula Tab) 1 tab PO DAILY GARY Stop: 03/28/21 08:59 Last Admin: 02/26/21 08:30 Dose: 1 tab Documented by: Nystatin (Nystatin Powder 15gm Btl) 1 appln EXT PRN PRN PRN Reason: Affected Skin Folds Stop: 03/28/21 02:51 Last Admin: 02/26/21 21:00 Dose: 1 appln Documented by: Ondansetron HCl (Ondansetron Inj 2 Mg/Ml 2 Ml Vial) 4 mg IV Q6H PRN PRN Reason: Nausea Stop: 03/28/21 00:32 Polyethylene Glycol (Polyethylene (Miralax) 17 Gm Pack) 17 gm PO DAILY PRN PRN Reason: Constipation Stop: 03/28/21 00:32 Potassium Chloride (Potassium Chloride Crtab 20 Meq Tabcr) 40 meq PO NOW STA Stop: 02/27/21 07:43 Simvastatin (Simvastatin 20 Mg Tab) 20 mg PO QPM GARY Stop: 03/28/21 20:59 Last Admin: 02/26/21 20:42 Dose: 20 mg Documented by: (1) Fall Encounter type: initial encounter Qualified Code(s): W19.XXXA - Unspecified fall, initial encounter (2) Leukocytosis Leukocytosis type: unspecified Qualified Code(s): D72.829 - Elevated white blood cell count, unspecified
[2021-02-27] MEDS ORDERED: SODIUM CHLORIDE 0.9% 500 ML IV SCH (07:45)
[2021-02-27] MEDS ORDERED: POTASSIUM CHLORIDE CRTAB 20 MEQ TABCR PO STA (07:46)
[2021-02-27] MEDS: ACETAMINOPHEN 325 MG TAB PO PRN ×3 (08:26→22:21)
[2021-02-27] MEDS: BACLOFEN 10 MG TAB PO SCH ×3 (08:27→20:19)
[2021-02-27] MEDS: GABAPENTIN 300 MG CAP PO SCH ×2 (08:27→20:19)
[2021-02-27] MEDS: CHLORTHALIDONE 25 MG TAB PO SCH (08:27)
[2021-02-27] MEDS: CEROVITE ADV FORMULA TAB PO SCH (08:28)
[2021-02-27] MEDS: INSULIN ASPART 100 UNITS/ML 3 ML PEN SC SCH ×4 (08:31→22:04)
[2021-02-27] MEDS: INSULIN HUMAN 70% NPH/30% REGULAR SC SCH ×2 (08:32→17:48)
--- NOTE | 2021-02-27 11:44 | Orthopedic Progress Note ---
Date of Service February 27, 2021 Assessment & Plan (1) Lumbar stenosis with neurogenic claudication: At this time we have had the opportunity review her updated imaging and MRI of the lumbar spine. It demonstrates severe multilevel spinal stenosis most impressive at L2-3, L3-4 and L4 for L5. There is evidence of a far lateral disc herniation L3-L4 on the right which would account for her radiculopathy and strength deficits. At this time she will be made n.p.o. after midnight we plan for lumbar decompression fusion L2-L5 with possible S1 tomorrow. Present on Admission?: Yes Admission and Anticipated Discharge Date Admission Date: February 25, 2021 Subjective Patient complaining of bilateral numbness and tingling in her lower extremities and feet. She experiences and describes severe pain in the right groin anterior thigh extending to the knee. She is unable to ambulate any distance. She is unable to stand. Physical Exam Physical Exam: On exam she is marked deficits to quadricep on the right at a 3+/5. It is 5 or 5 on the left. Plantar flexion dorsiflexion are 4+/5 bilaterally. There are sensory deficits to the right lower extremity compared to the left. Results & Data ([facility]) Vital Signs (Past 12 Hours) Vital Signs Temp Pulse Resp BP Pulse Ox 02/27/21 08:09 36.8 C 81 18 92/65 L 97
[2021-02-27] MEDS ORDERED: MICONAZOLE NITRATE POWDER 85 GM EXT PRN (12:57)
--- NOTE | 2021-02-27 16:09 | Anesthesiology Consultation ---
Date of Service February 27, 2021 The patient is to undergo a lumbar fusion due to neurogenic claudication tomorrow by Dr. Daniel. She has a history of DM, HTN, dyslipidemia, and morbid obesity. A preoperative EKG was obtained that showed T wave inversions in the a nterior leads. I discussed the patient with Dr. Bergeron and we agreed that the patient should have an echocardiogram and cardiology involvement. The case was also discussed with Dr. Pat who will be the anesthesiologist in Dr. Daniel's room tomorrow. She will follow up with any cardiology recommendations. Assessment & Plan (1) Encounter for pre-operative examination: Chart Review Chart Review: Pending: Refer to Additional Notes / Consult section and Patient NOT seen in Pre Admission Testing Consults Requested medical & cardiac History Surgery Operation Date: 02/28/21 12:55 Proposed Procedures p L2- L5 Posterior Fusion Instrumentation Possible L5-S1 - Abner Daniel, Height/Weight Height: 5 ft 3 in Weight: 104.808 kg Allergies Allergy/AdvReac Type Severity Reaction Status Date / Time Sulfa (Sulfonamide AdvReac NAUSEA/VOMI Verified 02/25/21 19:47 Antibiotics) TING Medications Home Medications Medication Instructions Recorded Confirmed Last Taken Otc Sleep Aide 1 tab PO HS PRN 02/25/21 02/25/21 Unknown acetaminophen [Tylenol Arthritis] 1,300 mg PO Q12H 02/25/21 02/25/21 Unknown baclofen 10 mg PO TID 02/25/21 02/25/21 Unknown chlorthalidone 25 mg PO DAILY 02/25/21 02/25/21 Unknown diclofenac sodium 75 mg PO BID 02/25/21 02/25/21 Unknown gabapentin 300 mg PO QAM 02/25/21 02/25/21 Unknown gabapentin 600 mg PO HS 02/25/21 02/25/21 Unknown insulin NPH and regular human 40 unit SUBCUT BID 02/25/21 02/25/21 Unknown [Novolin 70/30 U-100 Insulin] liraglutide [Victoza 2-Dedrick] 1.8 mg SUBCUT DAILY 02/25/21 02/25/21 Unknown [id number] 1 tab PO DAILY 02/25/21 02/25/21 Unknown [Centrum Silver] pioglitazone 15 mg PO DAILY 02/25/21 02/25/21 Unknown prednisone 20 mg PO .TAPER UD 02/25/21 02/25/21 02/25/21 09:00 simvastatin 20 mg PO QPM 02/25/21 02/25/21 Unknown Active Medications Generic Name Dose Route Start Last Admin Trade Name Freq PRN Reason Stop Dose Admin Acetaminophen 650 mg 02/26/21 00:33 02/27/21 12:56 Acetaminophen 325 Mg Tab PO 03/28/21 00:32 650 mg Q4H PRN Administration pain/fever Baclofen 10 mg 02/26/21 09:00 02/27/21 12:56 Baclofen 10 Mg Tab PO 03/28/21 08:59 10 mg TID GARY Administration Chlorthalidone 25 mg 02/26/21 09:00 02/27/21 08:27 Chlorthalidone 25 Mg Tab PO 03/28/21 08:59 25 mg DAILY GARY Administration Gabapentin 600 mg 02/26/21 21:00 02/26/21 20:42 Gabapentin 300 Mg Cap PO 03/28/21 20:59 600 mg HS GARY Administration Gabapentin 300 mg 02/26/21 09:00 02/27/21 08:27 Gabapentin 300 Mg Cap PO 03/28/21 08:59 300 mg QAM GARY Administration Hydromorphone HCl 0.5 mg 02/26/21 00:33 02/27/21 14:48 Hydromorphone Inj 0.5 Mg/0.5 Ml Syr IV 03/12/21 00:32 0.5 mg Q3H PRN Administration Pain Insulin Aspart 0 units 02/26/21 11:30 02/27/21 12:42 Insulin Aspart 100 Units/Ml 3 Ml Pen SC 03/28/21 11:29 2 units ACHS GARY Administration Multivitamins/Minerals 1 tab 02/26/21 09:00 02/27/21 08:28 Cerovite Adv Formula Tab PO 03/28/21 08:59 1 tab DAILY GARY Administration Nystatin 1 appln 02/26/21 02:52 02/26/21 21:00 Nystatin Powder 15gm Btl EXT 03/28/21 02:51 1 appln PRN PRN Administration Affected Skin Folds Simvastatin 20 mg 02/26/21 21:00 02/26/21 20:42 Simvastatin 20 Mg Tab PO 03/28/21 20:59 20 mg QPM GARY Administration Past Medical History Medical History Diabetes mellitus Dyslipidemia Hypertension Hypokalemia Lumbar stenosis Morbid obesity Social History Smoking Status: Never smoker Hx Alcohol Use: No Hx Substance Use: No Physical Exam Vital Signs Last Vital Signs Temp 36.5 C 02/27/21 15:55 Pulse 78 02/27/21 15:55 Resp 18 02/27/21 15:55 BP 131/81 02/27/21 15:55 Pulse Ox 96 02/27/21 15:55 Testing Laboratory Results 02/27/21 06:10 02/27/21 06:10 Hemoglobin A1c 7.8 % (4.5-5.6) H 02/26/21 05:19 Blood Type O Positive 02/27/21 16:02 Antibody Screen NEGATIVE 02/27/21 16:02 02/26/21 07:55 Aerobic Blood Culture - Preliminary Blood No growth in Aerobic bottle after 24 hours. Anaerobic Blood Culture - Preliminary No growth in Anaerobic bottle after 24 hours. 02/26/21 07:55 Aerobic Blood Culture - Preliminary Blood No growth in Aerobic bottle after 24 hours. Anaerobic Blood Culture - Preliminary No growth in Anaerobic bottle after 24 hours. 02/27/21 02/27/21 11:59 08:13 POC Glucose 182 H 175 H Electrocardiogram Date: 02/27/21 Findings: + NSR @ (76) and + T wave inversion (anterior leads)
--- NOTE | 2021-02-27 17:04 | Cardiology Consultation ---
Date of Consultation February 27, 2021 Assessment & Plan (1) Preop cardiovascular exam: (2) Abnormal ECG: (3) Hypertension: (4) Diabetes mellitus: (5) Dyslipidemia: 65-year-old female considered moderate perioperative risk due to limited functional capacity and abnormal resting ECG in conjunction with risk factors noted above. Recommend resting 2D transthoracic echocardiogram and dobutamine stress echocardiography for further risk stratification. Continue current medications as previously ordered. Case discussed with spinal surgery team. Further recommendations pending result of stress testing, however, if stress testing within normal limits, she will be scheduled for operative procedure in the afternoon 02/28/2021. History of Present Illness Reason for Consultation: Preoperative cardiovascular evaluation Requesting Physician: Dr. Bergeron Attending Physician: Casper Bergeron MD History of Present Illness 65-year-old female with history of longstanding diabetes presents to the ER with acute on chronic low back pain. Seen by spinal surgery planning lumbar fusion in a.m. Preoperative ECG with anterior T wave inversions suggesting ischemia. Patient's activity/exercise markedly limited by her low back pain. In the fall, prior to onset of symptoms, she was able to golf regularly and exercise. Diagnosed with Covid pneumonia summer 2019. Unfortunately her succumbed to the illness. No residual shortness of breath or cough. Denies any exert ional chest pain or unusual shortness of breath at that time. No orthopnea, PND, lower extremity edema, syncope, or near syncope. Complains of low back pain with radiculopathy. Denies personal history of coronary disease, congestive heart failure, rheumatic fever as a child, or peripheral vascular disease. Allergies Allergy/AdvReac Type Severity Reaction Status Date / Time Sulfa (Sulfonamide AdvReac NAUSEA/VOMI Verified 02/25/21 19:47 Antibiotics) TING Home Medications Medication Instructions Recorded Confirmed Type Otc Sleep Aide 1 tab PO HS PRN 02/25/21 02/25/21 History acetaminophen [Tylenol Arthritis] 1,300 mg PO Q12H 02/25/21 02/25/21 History baclofen 10 mg PO TID 02/25/21 02/25/21 History chlorthalidone 25 mg PO DAILY 02/25/21 02/25/21 History diclofenac sodium 75 mg PO BID 02/25/21 02/25/21 History gabapentin 300 mg PO QAM 02/25/21 02/25/21 History gabapentin 600 mg PO HS 02/25/21 02/25/21 History insulin NPH and regular human 40 unit SUBCUT BID 02/25/21 02/25/21 History [Novolin 70/30 U-100 Insulin] liraglutide [Victoza 2-Dedrick] 1.8 mg SUBCUT DAILY 02/25/21 02/25/21 History comvbcqdvgfj-[id number]-cndzaj 1 tab PO DAILY 02/25/21 02/25/21 History [Centrum Silver] pioglitazone 15 mg PO DAILY 02/25/21 02/25/21 History prednisone 20 mg PO .TAPER UD 02/25/21 02/25/21 History simvastatin 20 mg PO QPM 02/25/21 02/25/21 History oxycodone 5 mg PO Q6H PRN #30 tab 03/01/21 Rx tramadol 50 mg PO Q6H PRN #30 tab 03/01/21 Rx Patient History Medical History Diabetes mellitus Dyslipidemia Hypertension Hypokalemia Lumbar stenosis Morbid obesity Social History Smoking Status: Never smoker Hx Alcohol Use: No Hx Substance Use: No Preferred Language: Vietnamese Communication Ability: Effective 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 Beliefs That Will Affect Care: None Current Living Situation: Alone Feels Safe at Home: Yes Assistive Devices: Glasses and Walker Assistive Devices Comment: Recently started using walker Review of Systems Review of Systems: All systems reviewed & are unremarkable except as noted in Subjective Physical Exam Constitutional: well developed and well nourished; no acute distress Respiratory: normal respiratory effort; no respiratory distress and no labored breathing Cardiovascular: Rate/Rhythm: regular rate and regular rhythm Heart Sounds: normal S1 and normal S2; no murmur Vessels: no JVD Extremities: + edema (Mild bilateral pedal edema) Gastrointestinal (Abdomen): Inspection/Auscultation: abdomen normal to inspection and normal bowel sounds; abdomen not distended Percussion/Palpation: abdomen soft; abdomen nontender, no guarding and abdomen n ot rigid Neurologic: CN's II-XI intact bilaterally Motor/Sensory: no tremor Psychiatric: A+Ox3, euthymic affect Results & Data ([facility]) Vital Signs (Past 12 Hours) Vital Signs Temp Pulse Resp BP Pulse Ox 02/27/21 15:55 36.5 C 78 18 131/81 96 02/27/21 08:09 36.8 C 81 18 92/65 L 97 (1) Hypertension Hypertension type: essential hypertension Qualified Code(s): I10 - Essential (primary) hypertension
--- NOTE | 2021-02-27 18:07 | Electrocardiogram Report ---
Test Reason : Blood Pressure : / mmHG Vent. Rate : 076 BPM Atrial Rate : 076 BPM P-R Int : 136 ms QRS Dur : 094 ms QT Int : 410 ms P-R-T Axes : 033 -05 -03 degrees QTc Int : 461 ms Normal sinus rhythm T wave abnormality, consider anterior ischemia Abnormal ECG No previous ECGs available Confirmed by Jamal oJhnson ([id number]) on 02/27/2021 6:07:01 PM Referred By: REFERRED SELF Confirmed By:Ulises Johnson
[2021-02-27] MEDS: SIMVASTATIN 20 MG TAB PO SCH (20:19)
[2021-02-28] MEDS: HYDROmorphone INJ 0.5 MG/0.5 ML SYR IV PRN ×3 (02:58→09:35)
[2021-02-28] MEDS: ACETAMINOPHEN 325 MG TAB PO PRN ×2 (03:10→07:07)
[2021-02-28 06:04] LABS: Hematocrit (blood only) 43.7 % (37-47); Hemoglobin 15.3 g/dL (12.0-16.0); Mean Corpuscular Hemoglobin 31.9 pg (25-34); Mean Corpuscular Volume 91.2 fL (80-100); Mean Platelet Volume 10.2 fL (7.4-10.4); Platelet Count 331 K/uL (130-400); RDW Coefficient of Variation 12.4 % (11.5-14.5); RDW Standard Deviation 41.3 fL (36.4-46.3); Red Blood Count 4.79 M/uL (4.2-5.4); White Blood Count 12.36 K/uL (4.8-10.8)
[2021-02-28 06:42] LABS: BUN Creatinine Ratio 39.8 (10-20); Calcium 9.2 mg/dl (8.5-10.1); Creatinine Clr Calc Pharmacy 110.9 ml/min; Est GFR (African American) 111.2 ml/min; Est GFR (Non-African American) 95.9 ml/min; Magnesium 2.2 mg/dl (1.8-2.4); Potassium 3.3 mmol/L (3.5-5.1)
[2021-02-28] MEDS ORDERED: METOPROLOL TARTRATE 1 MG/ML VIAL IV ONE (07:17)
[2021-02-28] MEDS ORDERED: DOBUTamine HCL 12.5 MG/ML 20 ML VIAL IV ONE (07:17)
[2021-02-28] MEDS: INSULIN ASPART 100 UNITS/ML 3 ML PEN SC SCH ×4 (07:17→21:15)
[2021-02-28] MEDS ORDERED: ATROPINE SULFATE 0.1 MG/ML 10ML SYR IV ONE (07:17)
[2021-02-28] MEDS: INSULIN HUMAN 70% NPH/30% REGULAR SC SCH ×3 (07:18→18:44)
[2021-02-28] MEDS ORDERED: PERFLUTREN LIPID MICROSPHERE (DEFINITY) IV ONE (09:01)
[2021-02-28] MEDS: CEROVITE ADV FORMULA TAB PO SCH (09:35)
[2021-02-28] MEDS: GABAPENTIN 300 MG CAP PO SCH ×2 (09:36→20:03)
[2021-02-28] MEDS: BACLOFEN 10 MG TAB PO SCH ×3 (09:36→20:03)
[2021-02-28] MEDS: CHLORTHALIDONE 25 MG TAB PO SCH (09:36)
--- NOTE | 2021-02-28 10:39 | Hospitalist Progress Note ---
Date of Service February 28, 2021 Assessment & Plan (1) Neurogenic claudication due to lumbar spinal stenosis: (1) Lumbar stenosis with neurogenic claudication: (2) Fall: (3) Leg paresthesia: (4) Leukocytosis: This is a 65-year-old female who presents with severe back pain. 1. Severe back pain and also ongoing numbness of her lower extremities for 2 weeks and ambulatory dysfunction, fall at home, follows with spine surgery. Because of her ambulatory dysfunction, admitted to the medical floor. Pain control gentle fluids. stopped prednisone taper after discussing w/ ortho. Consulted orthopedics - Options have been reviewed with the patient including continuing conservative care versus ultimate surgical fixation. Surgery would involve multilevel lumbar decompression and fusion. This would most likely involve L2 through L5, possible L5-S1 decompression and fusion. Risks, stanley efits, pros cons and alternatives have been outlined in detail with the patient. She states quality of life is affected daily. Pt wants to pursue surgical intervention. Pt is now s/p surgical procedure w/ Dr. Daniel, feeling well, only tired from anesthesia. Tolerated procedure well/ Abnormal EKG - pt had T wave inversions on pre-op eval w/anesthesia - there are no EKGs to compare in our system as pt only recently moved here from [place] and established care w/ PCP - echo ordered and cardiology consulted for pre-op eval, recommended stress echo - pt underwent stress echo this AM, no signs of inducible ischemia noted 2. Diabetes. We will hold Victoza. Hold pioglitazone. Current A1c 7.8% Initially cut back on Novolin 70/30 to 20 units b.i.d. as the patient n.p.o. on admission, insulin sliding scale, follow the blood sugars. Increased insulin to 30 BID yesterday, as there was no procedure planned until later Cont. to closely monitor BS and adjust insulin as needed 3. History of hypertension. Continue chlorthalidone. 4. Hyperlipidemia. Continue statin. 5. History of obstructive sleep apnea. DVT prophylaxis, SCDs. DISPOSITION: PT and OT prior to discharge. Social service to help with discharge planning. Admission and Anticipated Discharge Date Admission Date: February 25, 2021 Subjective Pt seen post -op after procedure with Dr. Daniel She feels sleepy but otherwise has no complaints She is on 2L via [place] from PACU Denies any chest pain, shortness of breath, abd. pain, nausea Pt recently moved from [place] On pre-op EKG found T inversions, no EKGs to compare in Epis, echo ordered and cardiology consulted for pre-op eval Stress echo recommended and obtained this AM Review of Systems Review of Systems: All systems reviewed & are unremarkable except as noted in HPI & below Constitutional: no fever and no chills Respiratory: no cough and no dyspnea Cardiovascular: no chest pain and no palpitations Gastrointestinal: no abdominal pain and no vomiting Physical Exam Physical Exam: GENERAL: morbidly obese F, not in acute distress, sleepy (post-op) HEENT: NC/AT, EOMI, Pupils equal, round, and reactive to light. NECK: No JVD. No neck masses. CARDIOVASCULAR: S1, S2 heard, regular rate and rhythm, no murmur, no gallop. RESPIRATORY: Normal AP diameter. No accessory muscle use. No wheezing, no crackles. ABDOMEN: Soft, bowel sounds present, nontender. No distention. NEURO: alert and oriented x3, no facial asymmetry, moves extremities EXTREMITIES: No edema. Results & Data Results & Data ([facility]) Vital Signs (Past 12 Hours) Vital Signs Temp Pulse Resp BP Pulse Ox 02/28/21 09:39 36.7 C 72 18 114/75 96 02/27/21 22:41 37.0 C 81 16 115/81 97 Laboratory Results 02/28/21 02/28/21 02/28/21 Range/Units 07:05 05:29 05:29 WBC 12.36 H (4.8-10.8) K/uL RBC 4.79 (4.2-5.4) M/uL Hgb 15.3 (12.0-16.0) g/dL Hct 43.7 (37-47) % MCV 91.2 (80-100) fL MCH 31.9 (25-34) pg MCHC 35.0 (32-36) g/dL RDW Std Deviation 41.3 (36.4-46.3) fL RDW Coeff of Kinga 12.4 (11.5-14.5) % Plt Count 331 (130-400) K/uL MPV 10.2 (7.4-10.4) fL Sodium 135 L (136-145) mmol/L Potassium 3.3 L (3.5-5.1) mmol/L Chloride 100 (98-107) mmol/L Carbon Dioxide 30 (21-32) mmol/L Anion Gap 5.0 (3-11) BUN 23 H (7-18) mg/dl Creatinine 0.57 L (0.6-1.2) mg/dl Est Cr Clr Drug Dosing 110.9 ml/min Est GFR ( Amer) 111.2 ml/min Est GFR (Non-Af Amer) 95.9 ml/min BUN/Creatinine Ratio 39.8 H (10-20) Glucose 198 H (70-99) mg/dl POC Glucose 200 H (70-99) mg/dl Calcium 9.2 (8.5-10.1) mg/dl Magnesium 2.2 (1.8-2.4) mg/dl Blood Type Blood Type Recheck Antibody Screen Crossmatch 02/27/21 02/27/21 02/27/21 Range/Units 20:25 17:04 16:02 WBC (4.8-10.8) K/uL RBC (4.2-5.4) M/uL Hgb (12.0-16.0) g/dL Hct (37-47) % MCV (80-100) fL MCH (25-34) pg MCHC (32-36) g/dL RDW Std Deviation (36.4-46.3) fL RDW Coeff of Kinga (11.5-14.5) % Plt Count (130-400) K/uL MPV (7.4-10.4) fL Sodium (136-145) mmol/L Potassium (3.5-5.1) mmol/L Chloride (98-107) mmol/L Carbon Dioxide (21-32) mmol/L Anion Gap (3-11) BUN (7-18) mg/dl Creatinine (0.6-1.2) mg/dl Est Cr Clr Drug Dosing ml/min Est GFR ( Amer) ml/min Est GFR (Non-Af Amer) ml/min BUN/Creatinine Ratio (10-20) Glucose (70-99) mg/dl POC Glucose 193 H 170 H (70-99) mg/dl Calcium (8.5-10.1) mg/dl Magnesium (1.8-2.4) mg/dl Blood Type Blood Type Recheck O Positive Antibody Screen Crossmatch 0502/27/21 02/27/21 Range/Units 16:02 11:59 06:10 WBC (4.8-10.8) K/uL RBC (4.2-5.4) M/uL Hgb (12.0-16.0) g/dL Hct (37-47) % MCV (80-100) fL MCH (25-34) pg MCHC (32-36) g/dL RDW Std Deviation (36.4-46.3) fL RDW Coeff of Kinga (11.5-14.5) % Plt Count (130-400) K/uL MPV (7.4-10.4) fL Sodium 140 D (136-145) mmol/L Potassium (3.5-5.1) mmol/L Chloride (98-107) mmol/L Carbon Dioxide (21-32) mmol/L Anion Gap (3-11) BUN (7-18) mg/dl Creatinine (0.6-1.2) mg/dl Est Cr Clr Drug Dosing ml/min Est GFR ( Amer) ml/min Est GFR (Non-Af Amer) ml/min BUN/Creatinine Ratio (10-20) Glucose (70-99) mg/dl POC Glucose 182 H (70-99) mg/dl Calcium (8.5-10.1) mg/dl Magnesium (1.8-2.4) mg/dl Blood Type O Positive Blood Type Recheck Antibody Screen NEGATIVE Crossmatch See Detail Medications Administered Current Inpatient Medications Acetaminophen (Acetaminophen 325 Mg Tab) 650 mg PO Q4H PRN PRN Reason: pain/fever Stop: 03/28/21 00:32 Last Admin: 02/28/21 07:07 Dose: 650 mg Documented by: Baclofen (Baclofen 10 Mg Tab) 10 mg PO TID GARY Stop: 03/28/21 08:59 Last Admin: 02/28/21 09:36 Dose: 10 mg Documented by: Chlorthalidone (Chlorthalidone 25 Mg Tab) 25 mg PO DAILY AGRY Stop: 03/28/21 08:59 Last Admin: 02/28/21 09:36 Dose: 25 mg Documented by: Gabapentin (Gabapentin 300 Mg Cap) 600 mg PO HS GARY Stop: 03/28/21 20:59 Last Admin: 02/27/21 20:19 Dose: 600 mg Documented by: Gabapentin (Gabapentin 300 Mg Cap) 300 mg PO QAM [facility] Stop: 03/28/21 08:59 Last Admin: 02/28/21 09:36 Dose: 300 mg Documented by: Hydromorphone HCl (Hydromorphone Inj 0.5 Mg/0.5 Ml Syr) 0.5 mg IV Q3H PRN PRN Reason: Pain Stop: 03/12/21 00:32 Last Admin: 02/28/21 09:35 Dose: 0.5 mg Documented by: Insulin Aspart (Insulin Aspart 100 Units/Ml 3 Ml Pen) 0 units SC ACHS [facility] Stop: 03/28/21 11:29 Last Admin: 02/28/21 07:17 Dose: 2 units Documented by: Insulin Human Isoph/Insulin Regular (Insulin Human 70% Nph/30% Regular) 25 units SC BIDM [facility] Stop: 03/29/21 16:59 Last Admin: 02/27/21 17:48 Dose: 25 units Documented by: Miconazole Nitrate (Miconazole Nitrate Powder 43 Gm) 1 appln EXT PRN PRN PRN Reason: excoriation Stop: 03/29/21 12:56 Multivitamins/Minerals (Cerovite Adv Formula Tab) 1 tab PO DAILY [facility] Stop: 03/28/21 08:59 Last Admin: 02/28/21 09:35 Dose: 1 tab Documented by: Nystatin (Nystatin Powder 15gm Btl) 1 appln EXT PRN PRN PRN Reason: Affected Skin Folds Stop: 03/28/21 02:51 Last Admin: 02/26/21 21:00 Dose: 1 appln Documented by: Ondansetron HCl (Ondansetron Inj 2 Mg/Ml 2 Ml Vial) 4 mg IV Q6H PRN PRN Reason: Nausea Stop: 03/28/21 00:32 Polyethylene Glycol (Polyethylene (Miralax) 17 Gm Pack) 17 gm PO DAILY PRN PRN Reason: Constipation Stop: 03/28/21 00:32 Potassium Chloride (Potassium Chloride Crtab 20 Meq Tabcr) 40 meq PO QAM [facility] Stop: 03/30/21 10:44 Simvastatin (Simvastatin 20 Mg Tab) 20 mg PO QPM [facility] Stop: 03/28/21 20:59 Last Admin: 02/27/21 20:19 Dose: 20 mg Documented by:
[2021-02-28] MEDS: POTASSIUM CHLORIDE CRTAB 20 MEQ TABCR PO SCH (10:51)
[2021-02-28] MEDS ORDERED: fentaNYL citrate PF 100 MCG/2 ML VIAL ONE (11:19)
[2021-02-28] MEDS ORDERED: MIDAZOLAM HCL 1 MG/ML 2ML VIAL ONE (11:19)
--- NOTE | 2021-02-28 12:41 | History & Physical Bridge Note ---
Date of Service February 28, 2021 History & Physical Bridge Note I have examined the patient, reviewed the History & Physical and in the interval since the performance of the History & Physical I have noted the following changes of clinical significance: no changes noted Lumbar decompression fusion L2-L5 possible S1
[2021-02-28] MEDS ORDERED: ceFAZolin 2,000 MG/15 ML IV PUSH IV ONE (12:48)
[2021-02-28] MEDS ORDERED: ceFAZolin 2000MG 2,000 MG/15 ML SYR IV ONE (12:50)
[2021-02-28] MEDS ORDERED: fentaNYL citrate PF 100 MCG/2 ML VIAL IV PRN (13:24)
[2021-02-28] MEDS ORDERED: ePHEDrine sulfate 50 MG/ML AMP IV PRN (13:24)
[2021-02-28] MEDS ORDERED: ONDANSETRON INJ 2 MG/ML 2 ML VIAL IV PRN ×2 (13:24→17:32)
[2021-02-28] MEDS ORDERED: ATROPINE SULFATE 0.1 MG/ML 10ML SYR IV PRN (13:24)
[2021-02-28] MEDS ORDERED: HYDROmorphone INJ 2 MG/ML SYR/VIAL IV PRN (13:24)
[2021-02-28] MEDS ORDERED: BUPIVACAINE/EPINEPHRINE 0.5% MPF 1:200,000 30 ML VIAL ONE (13:26)
[2021-02-28] MEDS ORDERED: ceFAZolin 330 MG/ML 1 GM VIAL ONE (13:26)
[2021-02-28] MEDS ORDERED: HYDROmorphone INJ 2 MG/ML SYR/VIAL ONE (14:00)
[2021-02-28] MEDS ORDERED: FLOSEAL HEMOSTATIC MATRIX 10ML TOP ONE (14:10)
[2021-02-28] MEDS ORDERED: ePHEDrine sulfate 50 MG/5 ML SYR ONE (14:11)
[2021-02-28] MEDS ORDERED: NEOSTIGMINE METHYLSULFATE 1 MG/ML 10ML VIAL ONE (14:11)
[2021-02-28] MEDS ORDERED: PROPOFOL IV EMULSION 10 MG/ML 20 ML VIAL IV ONE (14:11)
[2021-02-28] MEDS ORDERED: LIDOCAINE 2% 2 ML VIAL/AMP(20MG/ML) INFIL ONE (14:11)
[2021-02-28] MEDS ORDERED: DEXAMETHASONE SOD INJ 4 MG/ML VIAL ONE (14:11)
[2021-02-28] MEDS ORDERED: LARYING-O-JET KIT (LTA) ONE (14:11)
[2021-02-28] MEDS ORDERED: ONDANSETRON INJ 2 MG/ML 2 ML VIAL ONE (14:11)
[2021-02-28] MEDS ORDERED: PHENYLEPHRINE 100MCG/ML 5ML SYR ONE (14:11)
[2021-02-28] MEDS ORDERED: GLYCOPYRROLATE 0.2 MG/ML VIAL ONE (14:11)
[2021-02-28] MEDS ORDERED: ROCURONIUM BROMIDE 10 MG/ML 5 ML VIAL IV ONE (14:11)
--- NOTE | 2021-02-28 15:52 | Operative Report ---
Post Operative Report Pre & Post Diagnosis Operation Date: 02/28/21 12:55 Pre-Op Diagnosis: Lumbar stenosis with neurogenic claudication Morbid obesity Post-Op Diagnosis: Lumbar stenosis with neurogenic claudication Morbid obesity Far lateral disc herniation L3-L4 on the right I identified the patient and participated in the time-out.: Yes Procedure Operation Date: 02/28/21 12:55 Actual Procedures #1 lumbar decompression with bilateral medial facetectomies and foraminotomies L2-3, L3-4 and L4-5. #2 posterior spinal fusion L2-3, L3-4 and L4-5. #3 placement posterior segmental instrumentation L2-L5. #4 interbody fusion L3-4 and L4-5. #5 placed a peek cage 12 x 22 mm at L3-4 and 11 x 20 mm at L for 5. #6 placement locally harvested morselized autograft in the posterior gutters. #7 placement infuse collagen sponge, master graft in the posterior lateral gutters and I factor in the interbody space. Surgeon Abner Daniel, DO Candy Separator Enrobing Cheyenne Pete Estimated Blood Loss 400 Findings See Below Patient is 5 foot 3 weighing over 104 kg with a BMI in excess of 40. This created significant technical difficulty requiring her deepest retractors longus instruments in order to perform her procedure. This at least 50% increase to the operative time. Specimens None Indications This is a 65-year-old female presents with marked decline in status and is here for urgent decompression fusion. Description of Procedure Patient was met with identified informed consent obtained. Patient was then taken to the operative suite underwent a patient placed in a prone position injectable total spine frame. All bony prominences well-padded eyes inspected to ensure no external pressure placed upon the. This point the lumbar spine was prepped and draped in a sterile fashion. Sharp dissection with the assistance of Bovie cautery performed down to and exposing the lamina and transverse processes of L2-L3-L4 and L5 bilaterally. From caudal cephalad fashion complete laminectomy of L4 L3 and L2 was performed including bilateral medial facetectomies and foraminotomies addressing severe spinal stenosis as well as evidence of a far lateral disc condition at L3-4 on the right. After complete decompression pedicle screws were placed in L2 L3-L4-L5 bilaterally and the proper sized blake placed. By way the transforaminal approach on the right a complete discectomy of L4-L5 was performed endplates curetted to subcortical being bone and a 11 x 22 mm peek cage filled with I factor tapped in position. Then proceeded to L3-L4 and again by way of a transforaminal portion right complete discectomy performed endplates curetted to subcortical being bone and a 12 x 22 mm peek cage filled with I factor tapped in position. The rods then locked in final position bilaterally. The transverse processes of L 2 L3-L4-L5 burred to subcortical bleeding bone. Infuse collagen sponge master graft local autograft was placed in posterior gutters. 15 round RICH drain inserted. The incision was then closed with 1 Vicryl the fascia 2-0 Vicryl subcutaneously and 4 Monocryl for final skin closure. Steri-Strips dressings placed. Patient will continue PACU stable condition. Please note spinal cord monitoring was utilized at the procedure no changes noted. Lastly Cheyenne Pete was present at the entire surgery while the patient positioning complex portions of the surgery and final skin closure. I attest to the content of the Intraoperative Record and any orders documented therein. Any exceptions are noted below.
--- NOTE | 2021-02-28 15:59 | Fluoroscopy Report ---
INTRAOPERATIVE RADIOGRAPHS CLINICAL HISTORY: L2-L5 spinal fusion. Fluoroscopy time: 22 seconds. FINDINGS: 2 spot fluoroscopic views of the lumbar spine are presented. There is been discectomy at L3 -L4 and L4-L5 with laminectomy and posterior fusion from L2-S1. Interpedicular screws are present at all levels. The orthopedic hardware appears intact. IMPRESSION: Intraoperative images from L2-L5 spinal fusion as above. Electronically signed by: Deyvn Tucker M.D. 02/28/2021 3:58 PM
--- NOTE | 2021-02-28 17:10 | Anesthesiology Progress Note ---
Date of Service February 28, 2021 Anesthesia Post Procedure Vital Signs Vital Signs: Temp Pulse Pulse Resp BP BP Pulse Ox 02/28/21 16:50 36.3 C L 80 14 129/80 98 02/28/21 16:40 72 14 134/67 99 02/28/21 16:30 70 14 137/68 99 02/28/21 16:20 70 15 111/71 98 02/28/21 16:11 36.1 C L 74 14 118/80 96 02/28/21 11:57 36.7 C 76 18 125/97 99 02/28/21 09:39 36.7 C 72 18 114/75 96 02/27/21 22:41 37.0 C 81 16 115/81 97 Pain Intensity Right Leg: Pain Intensity: 6 Transfer of Care Handoff Completed per policy Notes Mental Status: alert / awake / arousable and participated in evaluation Patient Amnestic to Procedure: Yes Nausea / Vomiting: adequately controlled Pain: adequately controlled Airway Patency, RR, SpO2: stable & adequate BP & HR: stable & adequate Hydration State: stable & adequate Anesthetic Complications: no major complications apparent and Pt Satisfied with anesthetic care
[2021-02-28] MEDS ORDERED: MAGNESIUM HYDROXIDE SUSP 30 ML UDC PO PRN (17:32)
[2021-02-28] MEDS ORDERED: LORazepam 0.5 MG/1 ML VIAL IV PRN (17:32)
[2021-02-28] MEDS ORDERED: FAMOTIDINE 20 MG TAB PO PRN (17:32)
[2021-02-28] MEDS ORDERED: ALUMINUM/MAGNESIUM SUSP 30 ML UDC PO PRN (17:32)
[2021-02-28] MEDS ORDERED: predniSONE 20 MG TAB PO SCH (17:32)
[2021-02-28] MEDS ORDERED: HYDROmorphone INJ 1 MG/ML SYRINGE IV PRN (17:32)
[2021-02-28] MEDS ORDERED: DO NOT ADMINISTER FLU VACCINE PRN (17:32)
[2021-02-28] MEDS ORDERED: LORazepam 0.5 MG TAB PO PRN (17:32)
[2021-02-28] MEDS ORDERED: PROMETHAZINE HCL 12.5 MG in SODIUM CHLORIDE 0.9% 50 ML IV PRN (17:32)
[2021-02-28] MEDS ORDERED: DO NOT ADMINISTER PNEUMOCOCCAL VACCINE PRN (17:32)
[2021-02-28] MEDS ORDERED: bisacodyL 10 MG SUPP PR PRN (17:32)
[2021-02-28] MEDS ORDERED: METOCLOPRAMIDE HCL INJ 5 MG/ML 2 ML VIAL IV PRN (17:32)
[2021-02-28] MEDS ORDERED: diphenhydrAMINE Capsule 25 MG CAP PO PRN (17:32)
[2021-02-28] MEDS ORDERED: PHARMACY GLYCEMIC MGMT CONSULT STA (17:32)
[2021-02-28] MEDS ORDERED: SLEEP AIDE PO PRN (17:32)
[2021-02-28] MEDS ORDERED: SOD PHOSPHATE/SOD BIPHOSPHATE ENEMA 132 ML BTL PR PRN (17:32)
[2021-02-28] MEDS ORDERED: hydrOXYzine HCl 25 MG TAB PO PRN (17:32)
[2021-02-28] MEDS ORDERED: ONDANSETRON 4 MG OD TAB PO PRN (17:32)
[2021-02-28] MEDS ORDERED: oxyCODONE HCL IR 5 MG TAB (IMMEDIATE RELEASE) PO PRN (17:32)
[2021-02-28] MEDS ORDERED: NALOXONE HCL 0.4 MG/1 ML VIAL/CARP IV PRN (17:32)
[2021-02-28] MEDS: SODIUM CHLORIDE 0.9% 1,000 ML IV SCH (19:59)
[2021-02-28] MEDS: SIMVASTATIN 20 MG TAB PO SCH (20:03)
[2021-02-28] MEDS: DOCUSATE SODIUM/SENNA 50/8.6MG TAB PO SCH (20:32)
[2021-02-28] MEDS: ACETAMINOPHEN 1,000 MG/100 ML VIAL IV PRN (20:33)
[2021-02-28] MEDS: traMADol HCL 50 MG TABLET PO PRN (20:33)
[2021-02-28] MEDS ORDERED: INSULIN HUMAN 70% NPH/30% REGULAR SQ SCH (21:00)
[2021-02-28] MEDS: ceFAZolin 2000MG 2,000 MG/15 ML SYR IV SCH (21:24)
[2021-03-01] MEDS: SODIUM CHLORIDE 0.9% 1,000 ML IV SCH ×2 (03:09→08:23)
[2021-03-01] MEDS: traMADol HCL 50 MG TABLET PO PRN ×4 (03:10→21:51)
[2021-03-01] MEDS: ceFAZolin 2000MG 2,000 MG/15 ML SYR IV SCH (06:01)
[2021-03-01] MEDS: ACETAMINOPHEN 1,000 MG/100 ML VIAL IV PRN (06:01)
[2021-03-01] MEDS: POLYETHYLENE (MIRALAX) 17 GM PACK PO SCH ×3 (06:02→18:21)
[2021-03-01 08:39] LABS: Basophils # (auto) 0.01 K/uL (0-0.2); Basophils % (auto) 0.1 %; Eosinophils # (auto) 0.01 K/uL (0-0.5); Eosinophils % (auto) 0.1 %; Hematocrit (blood only) 33.4 % (37-47); Hemoglobin 11.4 g/dL (12.0-16.0); Immature Granulocytes # (auto) 0.13 K/uL (0.00-0.02); Immature Granulocytes % (auto) 0.7 %; Lymphocytes # (auto) 1.58 K/uL (1.2-3.4); Lymphocytes % (auto) 8.1 %; Mean Corpuscular Hemoglobin 31.9 pg (25-34); Mean Corpuscular Hgb Conc 34.1 g/dL (32-36); Mean Corpuscular Volume 93.6 fL (80-100); Mean Platelet Volume 10.2 fL (7.4-10.4); Monocytes # (auto) 1.58 K/uL (0.11-0.59); Monocytes % (auto) 8.1 %; Neutrophils # (auto) 16.17 K/uL (1.4-6.5); Neutrophils % (auto) 82.9 %; Platelet Count 315 K/uL (130-400); RDW Coefficient of Variation 12.1 % (11.5-14.5); RDW Standard Deviation 41.3 fL (36.4-46.3); Red Blood Count 3.57 M/uL (4.2-5.4); White Blood Count 19.48 K/uL (4.8-10.8)
[2021-03-01 08:52] LABS: BUN Creatinine Ratio 22.5 (10-20); Calcium 8.9 mg/dl (8.5-10.1); Est GFR (African American) 108.1 ml/min; Est GFR (Non-African American) 93.3 ml/min; Potassium 4.4 mmol/L (3.5-5.1)
[2021-03-01] MEDS: INSULIN ASPART 100 UNITS/ML 3 ML PEN SC SCH ×4 (09:14→20:31)
[2021-03-01] MEDS: INSULIN HUMAN 70% NPH/30% REGULAR SC SCH ×2 (09:15→18:23)
[2021-03-01] MEDS: POTASSIUM CHLORIDE CRTAB 20 MEQ TABCR PO SCH (09:17)
[2021-03-01] MEDS: PIOGLITAZONE HCL 15 MG TAB PO SCH (09:17)
[2021-03-01] MEDS: GABAPENTIN 300 MG CAP PO SCH ×2 (09:18→20:32)
[2021-03-01] MEDS: BACLOFEN 10 MG TAB PO SCH ×3 (09:18→20:32)
[2021-03-01] MEDS: CEROVITE ADV FORMULA TAB PO SCH (09:20)
[2021-03-01] MEDS: CHLORTHALIDONE 25 MG TAB PO SCH (10:20)
--- NOTE | 2021-03-01 12:56 | Orthopedic Progress Note ---
Date of Service March 01, 2021 Assessment & Plan (1) Neurogenic claudication due to lumbar spinal stenosis: Admission and Anticipated Discharge Date Admission Date: February 25, 2021 This time continue physical therapy monitor RICH output anticipate discharge to rehab hopefully Saturday Subjective Back pain and leg pain markedly improved. Physical Exam Physical Exam: Patient is in the chair at the bedside. She is good strength testing. Appears comfortable. Results & Data ([facility]) Vital Signs (Past 12 Hours) Vital Signs Temp Pulse Pulse Resp BP BP Pulse Ox 03/01/21 09:28 85/59 L 03/01/21 07:42 36.9 C 81 16 96/59 L 95 03/01/21 03:25 36.8 C 90 18 101/66 96
[2021-03-01] MEDS ORDERED: SODIUM CHLORIDE 0.9% 1,000 ML IV SCH (13:45)
--- NOTE | 2021-03-01 14:10 | Cardiology Progress Note ---
Date of Service March 01, 2021 Assessment & Plan (1) Preop cardiovascular exam: (2) Abnormal ECG: (3) Hypertension: (4) Diabetes mellitus: (5) Dyslipidemia: Results of resting twelve-lead ECG and dobutamine stress echo discussed with patient at length. No evidence of inducible ischemia. No medication changes at this time from a cardiovascular perspective. All questions answered to patient satisfaction. Thank you for allow me to participate in the care of your patient. Cardiology will sign off. Please call with questions. Admission and Anticipated Discharge Date Admission Date: February 25, 2021 Subjective Patient seen examined the bedside. Denies chest pain or shortness of breath. She is not on telemetry. No surgical complications reported. Her pain is markedly improved. Denies orthopnea, PND, or edema. No palpitations, lightheadedness, or dizziness. Appetite is poor. Denies nausea or vomiting. No abdominal discomfort. Laboratory studies reveal postoperative anemia with a hemoglobin of 11.4gm/dL. Review of Systems Review of Systems: All systems reviewed & are unremarkable except as noted in Subjective Physical Exam Constitutional: well developed and well nourished; no acute distress Respiratory: normal respiratory effort; no respiratory distress and no labored breathing Cardiovascular: Rate/Rhythm: regular rate and regular rhythm Heart Sounds: normal S1 and normal S2; no murmur Vessels: no JVD Extremities: + edema (Mild bilateral pedal edema) Gastrointestinal (Abdomen): Inspection/Auscultation: abdomen normal to inspection and normal bowel sounds; abdomen not distended Percussion/Palpation: abdomen soft; abdomen nontender, no guarding and abdomen not rigid Neurologic: CN's II-XI intact bilaterally Motor/Sensory: no tremor Psychiatric: A+Ox3, euthymic affect Results & Data ([place]) Vital Signs (Past 12 Hours) Vital Signs Temp Pulse Pulse Resp BP BP Pulse Ox 03/01/21 13:43 87 89/57 L 03/01/21 09:28 85/59 L 03/01/21 07:42 36.9 C 81 16 96/59 L 95 03/01/21 03:25 36.8 C 90 18 101/66 96 (1) Hypertension Hypertension type: essential hypertension Qualified Code(s): I10 - Essential (primary) hypertension
[2021-03-01] MEDS: ACETAMINOPHEN 500 MG TAB PO PRN ×2 (15:57→21:51)
--- NOTE | 2021-03-01 17:42 | Hospitalist Progress Note ---
Date of Service March 01, 2021 Assessment & Plan (1) Lumbar stenosis with neurogenic claudication: s/p lumbar fusion on 02/28 after severe back pain and also ongoing numbness of her lower extremities for 2 along with ambulatory dysfunction and fall at home. Cont dexamethasone per ortho. Managing pain with tramadol. Some post- operative hypotension, may be related to narcotic use vs post operative recovery. Cont to hold chlorthalidone for now. 1L bolus with appropriate response in blood pressure. (2) Leg paresthesia: resolved post operatively (3) Leukocytosis: related to dexamethasone use. (4) DMII (diabetes mellitus, type 2): Not quite to goal glucose, continues on home regimen of pioglitazone, Victoza and increase NPH from 25 Units BID back to home dose of 40 Units BIDM. Novolog correction factor continues as needed. (5) Morbid obesity: Lifestyle modifications recommended to decrease percent body fat and increase lean muscle mass. (6) MARJORIE (obstructive sleep apnea): CPAP QHS (7) Hypertension: Hypotension present post-operatively. Holding home chlorthalidone. (8) Dyslipidemia: simvastatin per home regimen. (9) DVT prophylaxis: SCD. Full Code Dispo-to rehab when bed available. [facility] Hospitalist Admission and Anticipated Discharge Date Admission Date: February 25, 2021 Subjective 65-year-old female with neurogenic claudication due to lumbar spinal stenosis status post back surgery on 02/28. Pain is managed with Decadron and as needed tramadol. Some hypotension noted today with improvement in blood pressure after 1 L bolus. Home chlorthalidone was held. Repeat blood pressure after bolus was 106/68. Patient is asymptomatic including no lightheadedness, chest pain, shortness of breath or other concerning features of hypotension. Review of Systems Review of Systems: All systems reviewed & are unremarkable except as noted in Subjective Physical Exam Physical Exam: CONSTITUTIONAL: obese, vitals as above, generally well- appearing EYES: normal conjunctivae, no scleral icterus ENT: external ear and nose normal, MMM RESPIRATORY: clear to auscultation bilaterally, no crackles, rales or wheezes, normal respiratory effort CARDIOVASCULAR: regular rate and rhythm, S1 and 2 heard without murmurs, g allops or rubs, no JVD, no peripheral edema GASTROINTESTINAL: soft, nontender, nondistended MUSCULOSKELETAL: strength 5/5 throughout, head is normocephalic and atraumatic SKIN: warm and dry, back incision covered with surg dressing that is c/d/i, RICH drain in place. NEUROLOGIC: CN 2-12 grossly intact, no sensory deficit, normal cognition, normal speech, no gross deficits. Could not elicit patellar reflexes bilaterally. PSYCHIATRIC: alert cooperative and oriented to person, place and time. Results & Data Results & Data ([facility]) Vital Signs (Past 12 Hours) Vital Signs Temp Pulse Resp BP BP Pulse Ox 03/01/21 15:55 36.7 C 87 16 101/51 L 97 03/01/21 14:50 96 03/01/21 13:43 87 89/57 L 03/01/21 09:28 85/59 L 03/01/21 07:42 36.9 C 81 16 96/59 L 95 Laboratory Results Short CBC 03/01/21 Range/Units 07:19 WBC 19.48 H (4.8-10.8) K/uL Hgb 11.4 L D (12.0-16.0) g/dL Hct 33.4 L (37-47) % Plt Count 315 (130-400) K/uL BMP 03/01/21 07:19 Sodium 136 Potassium 4.4 D Chloride 100 Carbon Dioxide 31 BUN 14 Creatinine 0.62 Glucose 238 H Calcium 8.9 Medications Administered Current Inpatient Medications Acetaminophen (Acetaminophen 500 Mg Tab) 1,000 mg PO Q8H PRN PRN Reason: MILD Pain Scale 1,2,3 & Pre PT Stop: 03/30/21 17:31 Last Admin: 03/01/21 15:57 Dose: 1,000 mg Documented by: Al Hydrox/Mg Hydrox/Simethicone (Aluminum/Magnesium Susp 30 Ml Udc) 30 ml PO Q6H PRN PRN Reason: Dyspepsia Stop: 03/30/21 17:31 Baclofen (Baclofen 10 Mg Tab) 10 mg PO TID GARY Stop: 03/28/21 08:59 Last Admin: 03/01/21 13:11 Dose: 10 mg Documented by: Bisacodyl (Bisacodyl 10 Mg Supp) 10 mg VT DAILY PRN PRN Reason: Constipation Stop: 03/30/21 17:31 Chlorthalidone (Chlorthalidone 25 Mg Tab) 25 mg PO DAILY GARY Stop: 03/28/21 08:59 Last Admin: 03/01/21 10:20 Dose: Not Given Documented by: Diphenhydramine HCl (Diphenhydramine Capsule 25 Mg Cap) 25 mg PO Q6H PRN PRN Reason: Allergic Rhinitis/Insomnia Stop: 03/30/21 17:31 Famotidine (Famotidine 20 Mg Tab) 20 mg PO Q12H PRN PRN Reason: Dyspepsia Stop: 03/30/21 17:31 Gabapentin (Gabapentin 300 Mg Cap) 600 mg PO HS [facility] Stop: 03/28/21 20:59 Last Admin: 02/28/21 20:03 Dose: 600 mg Documented by: Gabapentin (Gabapentin 300 Mg Cap) 300 mg PO QAM [facility] Stop: 03/28/21 08:59 Last Admin: 03/01/21 09:18 Dose: 300 mg Documented by: Hydromorphone HCl (Hydromorphone Inj 0.5 Mg/0.5 Ml Syr) 0.5 mg IV Q3H PRN PRN Reason: MOD pain (scale 4-6) & Pre PT Stop: 03/14/21 17:31 Hydromorphone HCl (Hydromorphone Inj 1 Mg/Ml Syringe) 1 mg IV Q3H PRN PRN Reason: severe pain (scale 7-10) Stop: 03/14/21 17:31 Last Admin: 03/01/21 11:06 Dose: 1 mg Documented by: Hydroxyzine HCl (Hydroxyzine Hcl 25 Mg Tab) 25 mg PO Q8H PRN PRN Reason: Anxiety Stop: 03/30/21 17:31 Promethazine HCl 12.5 mg/ (Sodium Chloride) 50.5 mls @ 204 mls/hr IV Q6H PRN PRN Reason: Nausea &/or Vomiting Stop: 03/30/21 17:31 Lorazepam (Ativan) 0.5 mg in 1 mls @ 0.5 mls/min IV Q8H PRN PRN Reason: Sedation/Anxiety Stop: 03/30/21 17:31 Dexamethasone 8 mg/ Syringe 2 mls @ 1 mls/min IV DAILY GARY Stop: 04/01/21 08:59 Influenza Virus Vaccine Quadrival (Do Not Administer Flu Vaccine) 1 ea N/A PRN PRN PRN Reason: Notification Stop: 03/30/21 17:31 Insulin Aspart (Insulin Aspart 100 Units/Ml 3 Ml Pen) 0 units SC ACHS [facility] Stop: 03/28/21 11:29 Last Admin: 03/01/21 13:11 Dose: 5 units Documented by: Insulin Human Isoph/Insulin Regular (Insulin Human 70% Nph/30% Regular) 25 units SC BIDM [facility] Stop: 03/29/21 16:59 Last Admin: 03/01/21 09:15 Dose: 25 units Documented by: Lorazepam (Lorazepam 0.5 Mg Tab) 0.5 mg PO Q8H PRN PRN Reason: Sedation/Anxiety Stop: 03/30/21 17:31 Magnesium Hydroxide (Magnesium Hydroxide Susp 30 Ml Udc) 30 ml PO DAILY PRN PRN Reason: Constipation Stop: 03/30/21 17:31 Metoclopramide HCl (Metoclopramide Hcl Inj 5 Mg/Ml 2 Ml Vial) 10 mg IV Q6H PRN PRN Reason: Nausea &/or Vomiting Stop: 03/30/21 17:31 Miconazole Nitrate (Miconazole Nitrate Powder 43 Gm) 1 appln EXT PRN PRN PRN Reason: excoriation Stop: 03/29/21 12:56 Miscellaneous (Victoza: Order Awaiting Action) 1 ea N/A QS [facility] Stop: 03/31/21 00:00 Last Admin: 03/01/21 15:52 Dose: Not Given Documented by: Multivitamins/Minerals (Cerovite Adv Formula Tab) 1 tab PO DAILY [facility] Stop: 03/28/21 08:59 Last Admin: 03/01/21 09:20 Dose: 1 tab Documented by: Naloxone HCl (Naloxone Hcl 0.4 Mg/1 Ml Vial/Carp) 0.1 mg IV Q5M PRN; Protocol PRN Reason: Oversedation/Resp Depression Stop: 03/30/21 17:31 Nystatin (Nystatin Powder 15gm Btl) 1 appln EXT PRN PRN PRN Reason: Affected Skin Folds Stop: 03/28/21 02:51 Last Admin: 02/26/21 21:00 Dose: 1 appln Documented by: Ondansetron HCl (Ondansetron Inj 2 Mg/Ml 2 Ml Vial) 4 mg IV Q6H PRN PRN Reason: Nausea &/or Vomiting Stop: 03/30/21 17:31 Ondansetron HCl (Ondansetron 4 Mg Od Tab) 4 mg PO Q6H PRN PRN Reason: Nausea Stop: 03/30/21 17:31 Oxycodone HCl (Oxycodone Hcl Ir 5 Mg Tab (Immediate Release)) 5 - 10 mg PO Q4H PRN PRN Reason: Moderate-Severe Pain & Pre PT Stop: 03/14/21 17:31 Pioglitazone HCl (Pioglitazone Hcl 15 Mg Tab) 15 mg PO DAILY GARY Stop: 03/31/21 08:59 Last Admin: 03/01/21 09:17 Dose: 15 mg Documented by: Pneumococcal Polyvalent Vaccine (Do Not Administer Pneumococcal Vaccine) 1 ea N/A PRN PRN PRN Reason: Notification Stop: 03/30/21 17:31 Polyethylene Glycol (Polyethylene (Miralax) 17 Gm Pack) 17 gm PO Q6 GARY Stop: 03/31/21 05:59 Last Admin: 03/01/21 12:39 Dose: 17 gm Documented by: Potassium Chloride (Potassium Chloride Crtab 20 Meq Tabcr) 40 meq PO QAM GARY Stop: 03/30/21 10:44 Last Admin: 03/01/21 09:17 Dose: 40 meq Documented by: Senna/Docusate Sodium (Docusate Sodium/Senna 50/8.6mg Tab) 2 tab PO HS GARY Stop: 03/30/21 20:59 Last Admin: 02/28/21 20:32 Dose: 2 tab Documented by: Simvastatin (Simvastatin 20 Mg Tab) 20 mg PO QPM GARY Stop: 03/28/21 20:59 Last Admin: 02/28/21 20:03 Dose: 20 mg Documented by: Sodium Biphosphate/Sodium Phosphate (Sod Phosphate/Sod Biphosphate Enema 132 Ml Btl) 132 ml VT ONE PRN PRN Reason: Constipation Stop: 03/30/21 17:31 Tramadol HCl (Tramadol Hcl 50 Mg Tablet) 50 - 100 mg PO Q4H PRN PRN Reason: Moderate-Severe Pain & Pre PT Stop: 03/30/21 17:31 Last Admin: 03/01/21 15:57 Dose: 100 mg Documented by: (1) Leukocytosis Leukocytosis type: unspecified Qualified Code(s): D72.829 - Elevated white blood cell count, unspecified (2) Hypertension Hypertension type: essential hypertension Qualified Code(s): I10 - Essential (primary) hypertension
[2021-03-01] MEDS: SIMVASTATIN 20 MG TAB PO SCH (20:32)
[2021-03-01] MEDS: DOCUSATE SODIUM/SENNA 50/8.6MG TAB PO SCH (20:32)
[2021-03-02] MEDS: ACETAMINOPHEN 500 MG TAB PO PRN ×2 (05:36→18:21)
[2021-03-02] MEDS: traMADol HCL 50 MG TABLET PO PRN ×4 (05:36→20:26)
[2021-03-02 07:30] LABS: Hematocrit (blood only) 30.4 % (37-47); Hemoglobin 10.4 g/dL (12.0-16.0); Mean Corpuscular Hemoglobin 31.3 pg (25-34); Mean Corpuscular Hgb Conc 34.2 g/dL (32-36); Mean Corpuscular Volume 91.6 fL (80-100); Mean Platelet Volume 9.6 fL (7.4-10.4); Platelet Count 252 K/uL (130-400); RDW Coefficient of Variation 12.4 % (11.5-14.5); RDW Standard Deviation 41.9 fL (36.4-46.3); Red Blood Count 3.32 M/uL (4.2-5.4); White Blood Count 16.89 K/uL (4.8-10.8)
[2021-03-02] MEDS ORDERED: INSULIN HUMAN 70% NPH/30% REGULAR SC SCH (08:00)
[2021-03-02 08:05] LABS: BUN Creatinine Ratio 25.5 (10-20); Calcium 8.8 mg/dl (8.5-10.1); Creatinine Clr Calc Pharmacy 158.1 ml/min; Est GFR (African American) 124.9 ml/min; Est GFR (Non-African American) 107.8 ml/min; Potassium 3.3 mmol/L (3.5-5.1)
--- NOTE | 2021-03-02 08:42 | Orthopedic Progress Note ---
Date of Service March 02, 2021 Assessment & Plan (1) Neurogenic claudication due to lumbar spinal stenosis: Admission and Anticipated Discharge Date Admission Date: February 25, 2021 She will continue with physical therapy occupational therapy today hopefully discharge to rehab tomorrow. Subjective Patient's back pain is controlled leg symptoms are improved Physical Exam Physical Exam: Patient is in the chair at the bedside. Is improved strength the right quadricep. She is comfortable. Results & Data ([facility]) Vital Signs (Past 12 Hours) Vital Signs Temp Pulse Resp BP BP Pulse Ox 03/02/21 08:39 36.9 C 82 16 92/55 L 95 03/01/21 22:28 37.1 C 86 16 101/63 98
[2021-03-02] MEDS: CEROVITE ADV FORMULA TAB PO SCH (09:05)
[2021-03-02] MEDS: GABAPENTIN 300 MG CAP PO SCH ×2 (09:05→20:49)
[2021-03-02] MEDS: POTASSIUM CHLORIDE CRTAB 20 MEQ TABCR PO SCH (09:05)
[2021-03-02] MEDS: BACLOFEN 10 MG TAB PO SCH ×3 (09:05→20:49)
[2021-03-02] MEDS: PIOGLITAZONE HCL 15 MG TAB PO SCH (09:05)
[2021-03-02] MEDS: dexAMETHasone 8 MG in SYRINGE 0 ML IV SCH (09:06)
[2021-03-02] MEDS: LIRAGLUTIDE PEN SQ SCH (09:07)
[2021-03-02] MEDS: INSULIN ASPART 100 UNITS/ML 3 ML PEN SC SCH ×4 (09:10→20:42)
[2021-03-02] MEDS: HYDROmorphone INJ 0.5 MG/0.5 ML SYR IV PRN (10:57)
[2021-03-02] MEDS ORDERED: POTASSIUM CHLORIDE PWD 20 MEQ PACK PO ONE (12:55)
[2021-03-02] MEDS ORDERED: PHARMACY GLYCEMIC MGMT CONSULT SCH (13:10)
--- NOTE | 2021-03-02 13:29 | Pharmacy Report ---
Pharmacy Glycemic Short Note 2 - Date of Service March 02, 2021 - Glycemic Short BSG Results (Last 24 hours): 03/01/21 03/01/21 03/02/21 17:01 20:29 07:06 Glucose 156 H POC Glucose 195 H 226 H 03/02/21 03/02/21 08:07 11:47 Glucose POC Glucose 182 H 228 H OUTPATIENT ANTIDIABETIC REGIMEN: * Novolin 70/30 - 40 units BID * Victoza 1.8 mg SQ weekly (last dose 02/25) * Pioglitizone 15mg PO Daily ASSESSMENT: * 65 year old s/p lumbar fusion 02/28, with hyperglycemia d/t IV steroids, continues Dexamethasone 8mg IV Daily * Outpatient regimen is premixed basal/prandial insulin of Novolin 70/30 mix insulin. * Pre-mixed insulin is difficult to titrate since it is already in a fixed distribution of basal:prandial insulin. * Home insulin will be held for admission per pharmacy consult. Will utilize recommended regimen of SQ basal bolus insulin regimen with NPH + NovoLog (CF+CR) * Patient tolerating diet, likely DC tomorrow, has been on pioglitizone as inpatient, will continue at this time * ADA & AACE recommend a goal blood sugar range 140-180 mg/dl for the majority of critically ill & non-critically ill patients. However, more stringent targets may be selected in individual cases. Will utilize more stringent goal of 110-140mg/dl based on patient age & comorbidities. Additionally, tighter glycemic control is warranted to facilitate wound/infection healing. PLAN FOR INPATIENT GLYCEMIC CONTROL: * DC Novolin 70/30 (40 units given this AM) * continue Pioglitizone 15mg PO daily * Basal insulin * NPH 40 units SQ qam with IV Dexamethasone * NPH SQ with dinner based on blood sugar 0-30 units * Bolus insulin * NovoLog per scale ACHS or Q6hrs while NPO * CHANGE: Goal Range: Low 110 mg/dL - High 140 mg/dL * TIGHTEN: Correction Factor: 15 mg/dL/unit * ADD: Nutritional / Prandial insulin per carb ratio of 1 unit per 5 grams CHO consumed
--- NOTE | 2021-03-02 18:16 | Hospitalist Progress Note ---
Date of Service March 02, 2021 Assessment & Plan (1) Lumbar stenosis with neurogenic claudication: s/p lumbar fusion on 02/28 after severe back pain and also ongoing numbness of her lower extremities for 2 along with ambulatory dysfunction and fall at home. Cont dexamethasone per ortho. Managing pain with tramadol. Some post- operative hypotension, may be related to narcotic use vs post operative recovery. Cont to hold chlorthalidone for now. (2) Leg paresthesia: resolved post operatively (3) Leukocytosis: related to dexamethasone use. (4) DMII (diabetes mellitus, type 2): Not quite to goal glucose, continues on home regimen of pioglitazone, Victoza and increase NPH from 25 Units BID back to home dose of 40 Units BIDM. Novolog correction factor continues as needed. Glycemic pharmacist consulted. (5) Morbid obesity: Lifestyle modifications recommended to decrease percent body fat and increase lean muscle mass. (6) MARJORIE (obstructive sleep apnea): CPAP QHS (7) Hypertension: Hypotension present post-operatively. Holding home chlorthalidone. (8) Dyslipidemia: simvastatin per home regimen. (9) DVT prophylaxis: SCD. Full Code Dispo-to rehab when bed available, possibly tomorrow. Ana Munoz DO [facility] Hospitalist Admission and Anticipated Discharge Date Admission Date: February 25, 2021 Subjective 65-year-old female underwent L2-L5 posterior fusion by Dr. Daniel on 02/28. Pain is somewhat improved today but still present Blood pressure still low to normal Patient still utilizing narcotic therapy for pain management Tolerating p.o. Glycemic pharmacy consulted for persistently elevated sugars, notably patient on steroids. Review of Systems Review of Systems: All systems reviewed & are unremarkable except as noted in Subjective Physical Exam Physical Exam: CONSTITUTIONAL: obese, vitals as above, generally well- appearing EYES: normal conjunctivae, no scleral icterus ENT: external ear and nose normal, MMM RESPIRATORY: clear to auscultation bilaterally, no crackles, rales or wheezes, normal respiratory effort CARDIOVASCULAR: regular rate and rhythm, S1 and 2 heard without murmurs, gallops or rubs, no JVD, no peripheral edema GASTROINTESTINAL: soft, nontender, nondistended MUSCULOSKELETAL: strength 5/5 throughout, head is normocephalic and atraumatic SKIN: warm and dry, back incision covered with surg dressing that is c/d/i, RICH drain in place. NEUROLOGIC: CN 2-12 grossly intact, no sensory deficit, normal cognition, normal speech, no gross deficits. PSYCHIATRIC: alert cooperative and oriented to person, place and time. Results & Data Results & Data ([facility]) Vital Signs (Past 12 Hours) Vital Signs Temp Pulse Resp BP BP Pulse Ox 03/02/21 15:54 36.8 C 84 16 97/62 L 96 03/02/21 13:38 36.8 C 84 18 102/66 98 03/02/21 10:54 87 96/56 L 03/02/21 08:39 36.9 C 82 16 92/55 L 95 Laboratory Results Short CBC 03/02/21 Range/Units 07:06 WBC 16.89 H (4.8-10.8) K/uL Hgb 10.4 L (12.0-16.0) g/dL Hct 30.4 L (37-47) % Plt Count 252 (130-400) K/uL BMP 03/02/21 07:06 Sodium 136 Potassium 3.3 L D Chloride 100 Carbon Dioxide 30 BUN 10 Creatinine 0.40 L Glucose 156 H Calcium 8.8 Medications Administered Current Inpatient Medications Acetaminophen (Acetaminophen 500 Mg Tab) 1,000 mg PO Q8H PRN PRN Reason: MILD Pain Scale 1,2,3 & Pre PT Stop: 03/30/21 17:31 Last Admin: 03/02/21 05:36 Dose: 1,000 mg Documented by: Al Hydrox/Mg Hydrox/Simethicone (Aluminum/Magnesium Susp 30 Ml Udc) 30 ml PO Q6H PRN PRN Reason: Dyspepsia Stop: 03/30/21 17:31 Baclofen (Baclofen 10 Mg Tab) 10 mg PO TID [facility] Stop: 03/28/21 08:59 Last Admin: 03/02/21 13:37 Dose: 10 mg Documented by: Bisacodyl (Bisacodyl 10 Mg Supp) 10 mg MI DAILY PRN PRN Reason: Constipation Stop: 03/30/21 17:31 Chlorthalidone (Chlorthalidone 25 Mg Tab) 25 mg PO DAILY [facility] Stop: 03/28/21 08:59 Last Admin: 03/01/21 10:20 Dose: Not Given Documented by: Diphenhydramine HCl (Diphenhydramine Capsule 25 Mg Cap) 25 mg PO Q6H PRN PRN Reason: Allergic Rhinitis/Insomnia Stop: 03/30/21 17:31 Famotidine (Famotidine 20 Mg Tab) 20 mg PO Q12H PRN PRN Reason: Dyspepsia Stop: 03/30/21 17:31 Gabapentin (Gabapentin 300 Mg Cap) 600 mg PO HS [facility] Stop: 03/28/21 20:59 Last Admin: 03/01/21 20:32 Dose: 600 mg Documented by: Gabapentin (Gabapentin 300 Mg Cap) 300 mg PO QAM GARY Stop: 03/28/21 08:59 Last Admin: 03/02/21 09:05 Dose: 300 mg Documented by: Hydromorphone HCl (Hydromorphone Inj 0.5 Mg/0.5 Ml Syr) 0.5 mg IV Q3H PRN PRN Reason: MOD pain (scale 4-6) & Pre PT Stop: 03/14/21 17:31 Last Admin: 03/02/21 10:57 Dose: 0.5 mg Documented by: Hydroxyzine HCl (Hydroxyzine Hcl 25 Mg Tab) 25 mg PO Q8H PRN PRN Reason: Anxiety Stop: 03/30/21 17:31 Promethazine HCl 12.5 mg/ (Sodium Chloride) 50.5 mls @ 204 mls/hr IV Q6H PRN PRN Reason: Nausea &/or Vomiting Stop: 03/30/21 17:31 Lorazepam (Ativan) 0.5 mg in 1 mls @ 0.5 mls/min IV Q8H PRN PRN Reason: Sedation/Anxiety Stop: 03/30/21 17:31 Dexamethasone 8 mg/ Syringe 2 mls @ 1 mls/min IV DAILY GARY Stop: 04/01/21 08:59 Last Admin: 03/02/21 09:06 Dose: 1 mls/min Documented by: Influenza Virus Vaccine Quadrival (Do Not Administer Flu Vaccine) 1 ea N/A PRN PRN PRN Reason: Notification Stop: 03/30/21 17:31 Insulin Aspart (Insulin Aspart 100 Units/Ml 3 Ml Pen) 0 units SC ACHS [facility] Stop: 03/28/21 11:29 Last Admin: 03/02/21 13:28 Dose: 10 units Documented by: Insulin Human NPH (Insulin Human Nph) 40 units SC DAILY GARY; Protocol Stop: 04/02/21 08:59 Insulin Human NPH (Insulin Human Nph) 0 units SC DAILY@1700 GARY; Protocol Stop: 04/01/21 16:59 Liraglutide (Liraglutide Pen) 1 ea SQ DAILY GARY Stop: 04/01/21 08:59 Last Admin: 03/02/21 09:07 Dose: 1 ea Documented by: Lorazepam (Lorazepam 0.5 Mg Tab) 0.5 mg PO Q8H PRN PRN Reason: Sedation/Anxiety Stop: 03/30/21 17:31 Magnesium Hydroxide (Magnesium Hydroxide Susp 30 Ml Udc) 30 ml PO DAILY PRN PRN Reason: Constipation Stop: 03/30/21 17:31 Metoclopramide HCl (Metoclopramide Hcl Inj 5 Mg/Ml 2 Ml Vial) 10 mg IV Q6H PRN PRN Reason: Nausea &/or Vomiting Stop: 03/30/21 17:31 Miconazole Nitrate (Miconazole Nitrate Powder 43 Gm) 1 appln EXT PRN PRN PRN Reason: excoriation Stop: 03/29/21 12:56 Miscellaneous Information (Pharmacy Glycemic Mgmt Consult) 1 ea N/A UD GARY Stop: 04/01/21 13:09 Multivitamins/Minerals (Cerovite Adv Formula Tab) 1 tab PO DAILY GARY Stop: 03/28/21 08:59 Last Admin: 03/02/21 09:05 Dose: 1 tab Documented by: Naloxone HCl (Naloxone Hcl 0.4 Mg/1 Ml Vial/Carp) 0.1 mg IV Q5M PRN; Protocol PRN Reason: Oversedation/Resp Depression Stop: 03/30/21 17:31 Nystatin (Nystatin Powder 15gm Btl) 1 appln EXT PRN PRN PRN Reason: Affected Skin Folds Stop: 03/28/21 02:51 Last Admin: 02/26/21 21:00 Dose: 1 appln Documented by: Ondansetron HCl (Ondansetron Inj 2 Mg/Ml 2 Ml Vial) 4 mg IV Q6H PRN PRN Reason: Nausea &/or Vomiting Stop: 03/30/21 17:31 Ondansetron HCl (Ondansetron 4 Mg Od Tab) 4 mg PO Q6H PRN PRN Reason: Nausea Stop: 03/30/21 17:31 Oxycodone HCl (Oxycodone Hcl Ir 5 Mg Tab (Immediate Release)) 5 - 10 mg PO Q4H PRN PRN Reason: Moderate-Severe Pain & Pre PT Stop: 03/14/21 17:31 Pioglitazone HCl (Pioglitazone Hcl 15 Mg Tab) 15 mg PO DAILY [facility] Stop: 03/31/21 08:59 Last Admin: 03/02/21 09:05 Dose: 15 mg Documented by: Pneumococcal Polyvalent Vaccine (Do Not Administer Pneumococcal Vaccine) 1 ea N/A PRN PRN PRN Reason: Notification Stop: 03/30/21 17:31 Potassium Chloride (Potassium Chloride Crtab 20 Meq Tabcr) 40 meq PO QAM [facility] Stop: 03/30/21 10:44 Last Admin: 03/02/21 09:05 Dose: 40 meq Documented by: Senna/Docusate Sodium (Docusate Sodium/Senna 50/8.6mg Tab) 2 tab PO HS [facility] Stop: 03/30/21 20:59 Last Admin: 03/01/21 20:32 Dose: 2 tab Documented by: Simvastatin (Simvastatin 20 Mg Tab) 20 mg PO QPM GARY Stop: 03/28/21 20:59 Last Admin: 03/01/21 20:32 Dose: 20 mg Documented by: Sodium Biphosphate/Sodium Phosphate (Sod Phosphate/Sod Biphosphate Enema 132 Ml Btl) 132 ml MI ONE PRN PRN Reason: Constipation Stop: 03/30/21 17:31 Tramadol HCl (Tramadol Hcl 50 Mg Tablet) 50 - 100 mg PO Q4H PRN PRN Reason: Moderate-Severe Pain & Pre PT Stop: 03/30/21 17:31 Last Admin: 03/02/21 13:34 Dose: 100 mg Documented by: (1) Leukocytosis Leukocytosis type: unspecified Qualified Code(s): D72.829 - Elevated white blood cell count, unspecified (2) Hypertension Hypertension type: essential hypertension Qualified Code(s): I10 - Essential (primary) hypertension
[2021-03-02] MEDS: INSULIN HUMAN NPH SC SCH (18:19)
[2021-03-02] MEDS: DOCUSATE SODIUM/SENNA 50/8.6MG TAB PO SCH (20:49)
[2021-03-02] MEDS: SIMVASTATIN 20 MG TAB PO SCH (20:49)
[2021-03-03] MEDS: ACETAMINOPHEN 500 MG TAB PO PRN ×3 (05:19→21:05)
[2021-03-03] MEDS ORDERED: INSULIN HUMAN NPH SC SCH (09:00)
[2021-03-03] MEDS: traMADol HCL 50 MG TABLET PO PRN ×2 (09:21→15:43)
[2021-03-03] MEDS: dexAMETHasone 8 MG in SYRINGE 0 ML IV SCH (09:22)
[2021-03-03] MEDS: BACLOFEN 10 MG TAB PO SCH ×3 (09:23→21:00)
[2021-03-03] MEDS: CEROVITE ADV FORMULA TAB PO SCH (09:23)
[2021-03-03] MEDS: POTASSIUM CHLORIDE CRTAB 20 MEQ TABCR PO SCH (09:24)
[2021-03-03] MEDS: GABAPENTIN 300 MG CAP PO SCH ×2 (09:25→21:01)
[2021-03-03] MEDS: LIRAGLUTIDE PEN SQ SCH (09:26)
[2021-03-03] MEDS: INSULIN ASPART 100 UNITS/ML 3 ML PEN SC SCH ×4 (09:27→21:02)
--- NOTE | 2021-03-03 10:19 | Orthopedic Progress Note ---
Date of Service March 03, 2021 Assessment & Plan (1) Neurogenic claudication due to lumbar spinal stenosis: Admission and Anticipated Discharge Date Admission Date: February 25, 2021 At this time we will continue physical therapy discontinue or change dressing and RICH drain today. She is okay to discharge to rehab today per orthopedics. Subjective Back pain improving leg symptoms improving Physical Exam Physical Exam: Patient is in the chair at the bedside. Skin strength testing. Appears comfortable. Results & Data ([facility]) Vital Signs (Past 12 Hours) Vital Signs Temp Pulse Resp BP Pulse Ox 03/03/21 08:02 36.5 C 76 16 104/69 97 03/02/21 23:00 36.7 C 67 16 100/62 97
[2021-03-03] MEDS: HYDROmorphone INJ 0.5 MG/0.5 ML SYR IV PRN ×2 (10:52→11:21)
[2021-03-03] MEDS ORDERED: GLUCOSE 10 TAB/TUBE PO PRN (13:15)
[2021-03-03] MEDS ORDERED: GLUCOSE 40% GEL 15 GM TUBE PO PRN (13:15)
[2021-03-03] MEDS ORDERED: GLUCAGON FOR INJ 1 MG VIAL IM PRN (13:15)
[2021-03-03] MEDS ORDERED: CARBOHYDRATES FOR HYPOGLYCEMIA PO PRN (13:15)
[2021-03-03] MEDS ORDERED: DEXTROSE 50% 50 ML SYRINGE IV PRN (13:15)
[2021-03-03] MEDS: DOCUSATE SODIUM/SENNA 50/8.6MG TAB PO SCH (15:44)
[2021-03-03] MEDS: INSULIN HUMAN NPH SC SCH (18:47)
[2021-03-03] MEDS: SIMVASTATIN 20 MG TAB PO SCH (21:00)
--- NOTE | 2021-03-03 23:38 | Hospitalist Progress Note ---
Date of Service March 03, 2021 Assessment & Plan Admission and Anticipated Discharge Date Admission Date: February 25, 2021 Subjective 65 yo F s/p back surgery She is more willing to move today reports less pain no leg parethesia. Review of Systems Review of Systems: All systems reviewed & are unremarkable except as noted in Subjective Physical Exam Physical Exam: CONSTITUTIONAL: obese, vitals as above, generally well- appearing EYES: normal conjunctivae, no scleral icterus ENT: external ear and nose normal, MMM RESPIRATORY: clear to auscultation bilaterally, no crackles, rales or wheezes, normal respiratory effort CARDIOVASCULAR: regular rate and rhythm, S1 and 2 heard without murmurs, gallops or rubs, no JVD, no peripheral edema GASTROINTESTINAL: soft, nontender, nondistended MUSCULOSKELETAL: strength 5/5 throughout, head is normocephalic and atraumatic SKIN: warm and dry, back incision covered with surg dressing that is c/d/i, RICH drain in place. NEUROLOGIC: CN 2-12 grossly intact, no sensory deficit, normal cognition, normal speech, no gross deficits. PSYCHIATRIC: alert cooperative and oriented to person, place and time. Results & Data Results & Data ([facility]) Vital Signs (Past 12 Hours) Vital Signs Temp Pulse Resp BP Pulse Ox 03/03/21 22:49 36.9 C 91 H 20 128/79 97 03/03/21 16:09 36.7 C 75 16 104/58 L 96 Medications Administered Current Inpatient Medications Acetaminophen (Acetaminophen 500 Mg Tab) 1,000 mg PO Q8H PRN PRN Reason: MILD Pain Scale 1,2,3 & Pre PT Stop: 03/30/21 17:31 Last Admin: 03/03/21 21:05 Dose: 1,000 mg Documented by: Al Hydrox/Mg Hydrox/Simethicone (Aluminum/Magnesium Susp 30 Ml Udc) 30 ml PO Q6H PRN PRN Reason: Dyspepsia Stop: 03/30/21 17:31 Baclofen (Baclofen 10 Mg Tab) 10 mg PO TID GARY Stop: 03/28/21 08:59 Last Admin: 03/03/21 21:00 Dose: 10 mg Documented by: Bisacodyl (Bisacodyl 10 Mg Supp) 10 mg PA DAILY PRN PRN Reason: Constipation Stop: 03/30/21 17:31 Chlorthalidone (Chlorthalidone 25 Mg Tab) 25 mg PO DAILY GARY Stop: 03/28/21 08:59 Last Admin: 03/01/21 10:20 Dose: Not Given Documented by: Dextrose (Dextrose 50% 50 Ml Syringe) 25 - 50 ml IV UD PRN; Protocol PRN Reason: Hypoglycemia Protocol Stop: 04/02/21 13:14 Diphenhydramine HCl (Diphenhydramine Capsule 25 Mg Cap) 25 mg PO Q6H PRN PRN Reason: Allergic Rhinitis/Insomnia Stop: 03/30/21 17:31 Famotidine (Famotidine 20 Mg Tab) 20 mg PO Q12H PRN PRN Reason: Dyspepsia Stop: 03/30/21 17:31 Gabapentin (Gabapentin 300 Mg Cap) 600 mg PO HS GARY Stop: 03/28/21 20:59 Last Admin: 03/03/21 21:01 Dose: 600 mg Documented by: Gabapentin (Gabapentin 300 Mg Cap) 300 mg PO QAM GARY Stop: 03/28/21 08:59 Last Admin: 03/03/21 09:25 Dose: 300 mg Documented by: Glucagon (Glucagon For Inj 1 Mg Vial) 1 mg IM UD PRN; Protocol PRN Reason: Hypoglycemia Protocol Stop: 04/02/21 13:14 Glucose (Glucose 40% Gel 15 Gm Tube) 15 - 30 gm PO UD PRN; Protocol PRN Reason: Hypoglycemia Protocol Stop: 04/02/21 13:14 Glucose (Glucose 10 Tabs/Tube) 4 - 8 tabs PO UD PRN; Protocol PRN Reason: Hypoglycemia Protocol Stop: 04/02/21 13:14 Hydromorphone HCl (Hydromorphone Inj 0.5 Mg/0.5 Ml Syr) 0.5 mg IV Q3H PRN PRN Reason: MOD pain (scale 4-6) & Pre PT Stop: 03/14/21 17:31 Last Admin: 03/03/21 11:21 Dose: 0.5 mg Documented by: Hydroxyzine HCl (Hydroxyzine Hcl 25 Mg Tab) 25 mg PO Q8H PRN PRN Reason: Anxiety Stop: 03/30/21 17:31 Promethazine HCl 12.5 mg/ (Sodium Chloride) 50.5 mls @ 204 mls/hr IV Q6H PRN PRN Reason: Nausea &/or Vomiting Stop: 03/30/21 17:31 Lorazepam (Ativan) 0.5 mg in 1 mls @ 0.5 mls/min IV Q8H PRN PRN Reason: Sedation/Anxiety Stop: 03/30/21 17:31 Influenza Virus Vaccine Quadrival (Do Not Administer Flu Vaccine) 1 ea N/A PRN PRN PRN Reason: Notification Stop: 03/30/21 17:31 Insulin Aspart (Insulin Aspart 100 Units/Ml 3 Ml Pen) 0 units SC ACHS GARY Stop: 03/28/21 11:29 Last Admin: 03/03/21 21:02 Dose: 7 units Documented by: Insulin Human NPH (Insulin Human Nph) 40 units SC DAILY GARY; Protocol Stop: 04/02/21 08:59 Last Admin: 03/03/21 09:30 Dose: 40 units Documented by: Insulin Human NPH (Insulin Human Nph) 0 units SC DAILY@1700 GARY; Protocol Stop: 04/01/21 16:59 Last Admin: 03/03/21 18:47 Dose: 30 units Documented by: Liraglutide (Liraglutide Pen) 1 ea SQ DAILY GARY Stop: 04/01/21 08:59 Last Admin: 03/03/21 09:26 Dose: 1 ea Documented by: Lorazepam (Lorazepam 0.5 Mg Tab) 0.5 mg PO Q8H PRN PRN Reason: Sedation/Anxiety Stop: 03/30/21 17:31 Magnesium Hydroxide (Magnesium Hydroxide Susp 30 Ml Udc) 30 ml PO DAILY PRN PRN Reason: Constipation Stop: 03/30/21 17:31 Metoclopramide HCl (Metoclopramide Hcl Inj 5 Mg/Ml 2 Ml Vial) 10 mg IV Q6H PRN PRN Reason: Nausea &/or Vomiting Stop: 03/30/21 17:31 Miconazole Nitrate (Miconazole Nitrate Powder 43 Gm) 1 appln EXT PRN PRN PRN Reason: excoriation Stop: 03/29/21 12:56 Miscellaneous (Carbohydrates For Hypoglycemia ) 15 - 30 gm PO UD PRN PRN Reason: Hypoglycemia Treatment Stop: 04/02/21 13:14 Miscellaneous Information (Pharmacy Glycemic Mgmt Consult) 1 ea N/A UD GARY Stop: 04/01/21 13:09 Multivitamins/Minerals (Cerovite Adv Formula Tab) 1 tab PO DAILY GARY Stop: 03/28/21 08:59 Last Admin: 03/03/21 09:23 Dose: 1 tab Documented by: Naloxone HCl (Naloxone Hcl 0.4 Mg/1 Ml Vial/Carp) 0.1 mg IV Q5M PRN; Protocol PRN Reason: Oversedation/Resp Depression Stop: 03/30/21 17:31 Nystatin (Nystatin Powder 15gm Btl) 1 appln EXT PRN PRN PRN Reason: Affected Skin Folds Stop: 03/28/21 02:51 Last Admin: 02/26/21 21:00 Dose: 1 appln Documented by: Ondansetron HCl (Ondansetron Inj 2 Mg/Ml 2 Ml Vial) 4 mg IV Q6H PRN PRN Reason: Nausea &/or Vomiting Stop: 03/30/21 17:31 Ondansetron HCl (Ondansetron 4 Mg Od Tab) 4 mg PO Q6H PRN PRN Reason: Nausea Stop: 03/30/21 17:31 Oxycodone HCl (Oxycodone Hcl Ir 5 Mg Tab (Immediate Release)) 5 - 10 mg PO Q4H PRN PRN Reason: Moderate-Severe Pain & Pre PT Stop: 03/14/21 17:31 Pioglitazone HCl (Pioglitazone Hcl 15 Mg Tab) 15 mg PO DAILY GARY Stop: 03/31/21 08:59 Last Admin: 03/02/21 09:05 Dose: 15 mg Documented by: Pneumococcal Polyvalent Vaccine (Do Not Administer Pneumococcal Vaccine) 1 ea N/A PRN PRN PRN Reason: Notification Stop: 03/30/21 17:31 Potassium Chloride (Potassium Chloride Crtab 20 Meq Tabcr) 40 meq PO QAM GARY Stop: 03/30/21 10:44 Last Admin: 03/03/21 09:24 Dose: 40 meq Documented by: Senna/Docusate Sodium (Docusate Sodium/Senna 50/8.6mg Tab) 2 tab PO HS GARY Stop: 03/30/21 20:59 Last Admin: 03/03/21 15:44 Dose: 2 tab Documented by: Simvastatin (Simvastatin 20 Mg Tab) 20 mg PO QPM GARY Stop: 03/28/21 20:59 Last Admin: 03/03/21 21:00 Dose: 20 mg Documented by: Sodium Biphosphate/Sodium Phosphate (Sod Phosphate/Sod Biphosphate Enema 132 Ml Btl) 132 ml PA ONE PRN PRN Reason: Constipation Stop: 03/30/21 17:31 Tramadol HCl (Tramadol Hcl 50 Mg Tablet) 50 - 100 mg PO Q4H PRN PRN Reason: Moderate-Severe Pain & Pre PT Stop: 03/30/21 17:31 Last Admin: 03/03/21 15:43 Dose: 100 mg Documented by:
[2021-03-04] MEDS: ACETAMINOPHEN 500 MG TAB PO PRN ×2 (06:09→14:16)
[2021-03-04] MEDS: traMADol HCL 50 MG TABLET PO PRN (06:10)
[2021-03-04] MEDS ORDERED: INSULIN HUMAN NPH SC SCH (09:30)
[2021-03-04] MEDS: BACLOFEN 10 MG TAB PO SCH ×2 (09:47→14:16)
[2021-03-04] MEDS: CEROVITE ADV FORMULA TAB PO SCH (09:48)
[2021-03-04] MEDS: POTASSIUM CHLORIDE CRTAB 20 MEQ TABCR PO SCH (09:48)
[2021-03-04] MEDS: GABAPENTIN 300 MG CAP PO SCH (09:48)
[2021-03-04] MEDS: INSULIN ASPART 100 UNITS/ML 3 ML PEN SC SCH ×2 (09:51→12:48)
[2021-03-04] MEDS: LIRAGLUTIDE PEN SQ SCH (09:58)
--- NOTE | 2021-03-04 10:02 | Hospitalist Progress Note ---
Date of Service March 04, 2021 Assessment & Plan (1) Neurogenic claudication due to lumbar spinal stenosis: (1) Lumbar stenosis with neurogenic claudication: (2) Fall: (3) Leg paresthesia: (4) Leukocytosis: This is a 65-year-old female who presents with severe back pain. 1. Severe back pain and also ongoing numbness of her lower extremities for 2 weeks and ambulatory dysfunction, fall at home, follows with spine surgery. Because of her ambulatory dysfunction, admitted to the medical floor. Pain control gentle fluids. stopped prednisone taper after discussing w/ ortho. Consulted orthopedics - Options have been reviewed with the patient including continuing conservative care versus ultimate surgical fixation. Surgery would involve multilevel lumbar decompression and fusion. This would most likely involve L2 through L5, possible L5-S1 decompression and fusion. Risks, benefits, pros cons and alternatives have been outlined in detail with the patient. She states quality of life is affected daily. Pt wants to pursue surgical intervention. Pt is now s/p surgical procedure w/ Dr. Daniel . Tolerated procedure well 2. Abnormal EKG - pt had T wave inversions on pre-op eval w/anesthesia - there are no EKGs to compare in our system as pt only recently moved here from [place] and [facility] w/ PCP - echo ordered and cardiology consulted for pre-op eval, recommended stress echo - pt underwent stress echo this AM, no signs of inducible ischemia noted 3. Diabetes. We will hold Victoza. Held pioglitazone. Current A1c 7.8% Cont. home Novolin 70/30 40 units b.i.d. Cont. home Victoza Cont. to closely monitor BS and adjust insulin as needed 4. History of hypertension. Continue chlorthalidone. 5. Hyperlipidemia. Continue statin. 6. History of obstructive sleep apnea. Recommend outpatient follow-up/repeat study or obtain outpatient records from [place] 7. Morbid obesity. Less than modifications recommended DVT prophylaxis, SCDs. DISPOSITION: Plan to discharge to [facility] Admission and Anticipated Discharge Date Admission Date: February 25, 2021 Subjective Patient seen in follow-up of lumbar spinal surgery Currently she sitting up in the chair, in no acute distress, saying overall she feels well Denies any chest pain, shortness of breath, abdominal pain, fevers, chills, nausea or vomiting Says her back feels better and she was able to ambulate in hallways Awaiting discharge to [facility] Review of Systems Review of Systems: All systems reviewed & are unremarkable except as noted in HPI & below Constitutional: no fever and no chills Respiratory: no cough and no dyspnea Cardiovascular: no chest pain and no palpitations Gastrointestinal: no abdominal pain, no nausea and no vomiting Physical Exam Physical Exam: GENERAL: morbidly obese F, not in acute distress HEENT: NC/AT, EOMI, Pupils equal, round, and reactive to light. NECK: No JVD. No neck masses. CARDIOVASCULAR: S1, S2 heard, regular rate and rhythm, no murmur, no gallop. RESPIRATORY: Normal AP diameter. No accessory muscle use. No wheezing, no crackles. ABDOMEN: Soft, bowel sounds present, nontender. No distention. NEURO: alert and oriented x3, no facial asymmetry, moves extremities EXTREMITIES: No edema. Results & Data Results & Data ([facility]) Vital Signs (Past 12 Hours) Vital Signs Temp Pulse Resp BP Pulse Ox 03/04/21 08:04 36.7 C 84 16 107/70 96 03/03/21 22:49 36.9 C 91 H 20 128/79 97 Medications Administered Current Inpatient Medications Acetaminophen (Acetaminophen 500 Mg Tab) 1,000 mg PO Q8H PRN PRN Reason: MILD Pain Scale 1,2,3 & Pre PT Stop: 03/30/21 17:31 Last Admin: 03/04/21 06:09 Dose: 1,000 mg Documented by: Al Hydrox/Mg Hydrox/Simethicone (Aluminum/Magnesium Susp 30 Ml Udc) 30 ml PO Q6H PRN PRN Reason: Dyspepsia Stop: 03/30/21 17:31 Baclofen (Baclofen 10 Mg Tab) 10 mg PO TID [facility] Stop: 03/28/21 08:59 Last Admin: 03/03/21 21:00 Dose: 10 mg Documented by: Bisacodyl (Bisacodyl 10 Mg Supp) 10 mg FL DAILY PRN PRN Reason: Constipation Stop: 03/30/21 17:31 Chlorthalidone (Chlorthalidone 25 Mg Tab) 25 mg PO DAILY [facility] Stop: 03/28/21 08:59 Last Admin: 03/01/21 10:20 Dose: Not Given Documented by: Dextrose (Dextrose 50% 50 Ml Syringe) 25 - 50 ml IV UD PRN; Protocol PRN Reason: Hypoglycemia Protocol Stop: 04/02/21 13:14 Diphenhydramine HCl (Diphenhydramine Capsule 25 Mg Cap) 25 mg PO Q6H PRN PRN Reason: Allergic Rhinitis/Insomnia Stop: 03/30/21 17:31 Famotidine (Famotidine 20 Mg Tab) 20 mg PO Q12H PRN PRN Reason: Dyspepsia Stop: 03/30/21 17:31 Gabapentin (Gabapentin 300 Mg Cap) 600 mg PO HS GARY Stop: 03/28/21 20:59 Last Admin: 03/03/21 21:01 Dose: 600 mg Documented by: Gabapentin (Gabapentin 300 Mg Cap) 300 mg PO QAM GARY Stop: 03/28/21 08:59 Last Admin: 03/03/21 09:25 Dose: 300 mg Documented by: Glucagon (Glucagon For Inj 1 Mg Vial) 1 mg IM UD PRN; Protocol PRN Reason: Hypoglycemia Protocol Stop: 04/02/21 13:14 Glucose (Glucose 40% Gel 15 Gm Tube) 15 - 30 gm PO UD PRN; Protocol PRN Reason: Hypoglycemia Protocol Stop: 04/02/21 13:14 Glucose (Glucose 10 Tabs/Tube) 4 - 8 tabs PO UD PRN; Protocol PRN Reason: Hypoglycemia Protocol Stop: 04/02/21 13:14 Hydromorphone HCl (Hydromorphone Inj 0.5 Mg/0.5 Ml Syr) 0.5 mg IV Q3H PRN PRN Reason: MOD pain (scale 4-6) & Pre PT Stop: 03/14/21 17:31 Last Admin: 03/03/21 11:21 Dose: 0.5 mg Documented by: Hydroxyzine HCl (Hydroxyzine Hcl 25 Mg Tab) 25 mg PO Q8H PRN PRN Reason: Anxiety Stop: 03/30/21 17:31 Promethazine HCl 12.5 mg/ (Sodium Chloride) 50.5 mls @ 204 mls/hr IV Q6H PRN PRN Reason: Nausea &/or Vomiting Stop: 03/30/21 17:31 Lorazepam (Ativan) 0.5 mg in 1 mls @ 0.5 mls/min IV Q8H PRN PRN Reason: Sedation/Anxiety Stop: 03/30/21 17:31 Influenza Virus Vaccine Quadrival (Do Not Administer Flu Vaccine) 1 ea N/A PRN PRN PRN Reason: Notification Stop: 03/30/21 17:31 Insulin Aspart (Insulin Aspart 100 Units/Ml 3 Ml Pen) 0 units SC ACHS [facility] Stop: 03/28/21 11:29 Last Admin: 03/03/21 21:02 Dose: 7 units Documented by: Insulin Human NPH (Insulin Human Nph) 0 units SC DAILY@1700 GARY; Protocol Stop: 04/01/21 16:59 Last Admin: 03/03/21 18:47 Dose: 30 units Documented by: Insulin Human NPH (Insulin Human Nph) 30 units SC DAILY GARY; Protocol Stop: 04/03/21 09:29 Liraglutide (Liraglutide Pen) 1 ea SQ DAILY GARY Stop: 04/01/21 08:59 Last Admin: 03/03/21 09:26 Dose: 1 ea Documented by: Lorazepam (Lorazepam 0.5 Mg Tab) 0.5 mg PO Q8H PRN PRN Reason: Sedation/Anxiety Stop: 03/30/21 17:31 Magnesium Hydroxide (Magnesium Hydroxide Susp 30 Ml Udc) 30 ml PO DAILY PRN PRN Reason: Constipation Stop: 03/30/21 17:31 Metoclopramide HCl (Metoclopramide Hcl Inj 5 Mg/Ml 2 Ml Vial) 10 mg IV Q6H PRN PRN Reason: Nausea &/or Vomiting Stop: 03/30/21 17:31 Miconazole Nitrate (Miconazole Nitrate Powder 43 Gm) 1 appln EXT PRN PRN PRN Reason: excoriation Stop: 03/29/21 12:56 Miscellaneous (Carbohydrates For Hypoglycemia ) 15 - 30 gm PO UD PRN PRN Reason: Hypoglycemia Treatment Stop: 04/02/21 13:14 Miscellaneous Information (Pharmacy Glycemic Mgmt Consult) 1 ea N/A UD GARY Stop: 04/01/21 13:09 Multivitamins/Minerals (Cerovite Adv Formula Tab) 1 tab PO DAILY [facility] Stop: 03/28/21 08:59 Last Admin: 03/03/21 09:23 Dose: 1 tab Documented by: Naloxone HCl (Naloxone Hcl 0.4 Mg/1 Ml Vial/Carp) 0.1 mg IV Q5M PRN; Protocol PRN Reason: Oversedation/Resp Depression Stop: 03/30/21 17:31 Nystatin (Nystatin Powder 15gm Btl) 1 appln EXT PRN PRN PRN Reason: Affected Skin Folds Stop: 03/28/21 02:51 Last Admin: 02/26/21 21:00 Dose: 1 appln Documented by: Ondansetron HCl (Ondansetron Inj 2 Mg/Ml 2 Ml Vial) 4 mg IV Q6H PRN PRN Reason: Nausea &/or Vomiting Stop: 03/30/21 17:31 Ondansetron HCl (Ondansetron 4 Mg Od Tab) 4 mg PO Q6H PRN PRN Reason: Nausea Stop: 03/30/21 17:31 Oxycodone HCl (Oxycodone Hcl Ir 5 Mg Tab (Immediate Release)) 5 - 10 mg PO Q4H PRN PRN Reason: Moderate-Severe Pain & Pre PT Stop: 03/14/21 17:31 Pioglitazone HCl (Pioglitazone Hcl 15 Mg Tab) 15 mg PO DAILY [facility] Stop: 03/31/21 08:59 Last Admin: 03/02/21 09:05 Dose: 15 mg Documented by: Pneumococcal Polyvalent Vaccine (Do Not Administer Pneumococcal Vaccine) 1 ea N/A PRN PRN PRN Reason: Notification Stop: 03/30/21 17:31 Potassium Chloride (Potassium Chloride Crtab 20 Meq Tabcr) 40 meq PO QAM [facility] Stop: 03/30/21 10:44 Last Admin: 03/03/21 09:24 Dose: 40 meq Documented by: Senna/Docusate Sodium (Docusate Sodium/Senna 50/8.6mg Tab) 2 tab PO HS [facility] Stop: 03/30/21 20:59 Last Admin: 03/03/21 15:44 Dose: 2 tab Documented by: Simvastatin (Simvastatin 20 Mg Tab) 20 mg PO QPM GARY Stop: 03/28/21 20:59 Last Admin: 03/03/21 21:00 Dose: 20 mg Documented by: Sodium Biphosphate/Sodium Phosphate (Sod Phosphate/Sod Biphosphate Enema 132 Ml Btl) 132 ml FL ONE PRN PRN Reason: Constipation Stop: 03/30/21 17:31 Tramadol HCl (Tramadol Hcl 50 Mg Tablet) 50 - 100 mg PO Q4H PRN PRN Reason: Moderate-Severe Pain & Pre PT Stop: 03/30/21 17:31 Last Admin: 03/04/21 06:10 Dose: 50 mg Documented by:
--- NOTE | 2021-03-04 10:29 | Discharge Summary ---
Date of Service March 04, 2021 Admission HPI Per Admitting Provider A 65-year-old female with past medical history significant for type 2 diabetes, hyperlipidemia, obstructive sleep apnea, hypertension, morbid obesity, vitamin D deficiency, GERD, sacroiliac inflammation, primary osteoarthritis of both knees, comes because of fall. The patient is having ongoing severe back pain and the numbness of the lower extremities, which started 2 weeks ago. Numbness worse on the right leg. She saw orthopedics and had recent 2 MRI scans and she has a followup appointment. But today because of ongoing pain and numbness getting worse, she ambulates with a walker and she fell at home and after that she could not ambulate, so she came to the ER. CAT scan was unremarkable. ER talked to orthopedics and they are going to evaluate the patient in the morning. Currently sitting in a chair. From last 2 weeks she was only ambulating to the bathroom and back with a walker, but now she could not ambulate because of severe pain in the leg and numbness in lower extremities. Denies any incontinence. No abdominal pain, no diarrhea or constipation. Normal bladder movements. No chest pain, no shortness of breath, no cough, no fever, no chills, no abdominal pain. Appetite is okay. No headache, no blurred vision, no earache, no runny nose, no sore throat. Currently resting comfortably and hemodynamically stable. Admission Exam Per Admitting Provider GENERAL: The patient is of moderate build, not in acute distress. VITAL SIGNS: Temperature 36.5, pulse 74, respiratory rate 14, blood pressure 154/74, oxygen 95% on room air. HEENT: Pupils equal, round, and reactive to light. NECK: No JVD. No neck masses. CARDIOVASCULAR: S1, S2 heard, regular rate and rhythm, no murmur, no gallop. RESPIRATORY SYSTEM: Normal AP diameter. No accessory muscle use. No wheezing, no crackles. ABDOMEN: Soft, bowel sounds present, nontender. No distention. CENTRAL NERVOUS SYSTEM: Cranial nerves II-XII are grossly intact. EXTREMITIES: No edema. Painful movements of the lower extremities. Principal Diagnosis Lumbar spinal stenosis with radiculopathy s/p surgery Discharge Exam GENERAL: morbidly obese F, not in acute distress HEENT: NC/AT, EOMI, Pupils equal, round, and reactive to light. NECK: No JVD. No neck masses. CARDIOVASCULAR: S1, S2 heard, regular rate and rhythm, no murmur, no gallop. RESPIRATORY: Normal AP diameter. No accessory muscle use. No wheezing, no crackles. ABDOMEN: Soft, bowel sounds present, nontender. No distention. NEURO: alert and oriented x3, no facial asymmetry, moves extremities EXTREMITIES: No edema. Discharge Data Allergies Allergy/AdvReac Type Severity Reaction Status Date / Time Sulfa (Sulfonamide AdvReac NAUSEA/VOMI Verified 02/25/21 19:47 Antibiotics) TING Consultations 02/25/21 21:47 ED Decision to Admit Stat 02/27/21 07:53 Consult Anesthesiology Routine 02/27/21 10:20 Consult Orthopedic Surgery Routine 02/27/21 16:10 Consult Cardiology Routine Procedures Performed Operation Date: 02/28/21 12:55 Actual Procedures p L2- L5 Posterior Fusion Instrumentation with spinal cord monitoring(Not Applicable) - Abner Daniel DO Ordered Studies 02/25/21 19:56 CT lumbar spine wo con Urgent IMPRESSION: 1. No evidence of acute fracture or traumatic subluxation 2. Advanced multilevel spondylytic changes with significant multilevel spinal stenosis.. 02/28/21 12:55 FL lumbar spine 2-3V Routine IMPRESSION: Intraoperative images from L2-L5 spinal fusion as above. Hospital Course (1) Neurogenic claudication due to lumbar spinal stenosis: (1) Lumbar stenosis with neurogenic claudication: (2) Fall: (3) Leg paresthesia: (4) Leukocytosis: This is a 65-year-old female who presents with severe back pain. 1. Severe back pain and also ongoing numbness of her lower extremities for 2 weeks and ambulatory dysfunction, fall at home, follows with spine surgery. Because of her ambulatory dysfunction, admitted to the medical floor. Pain control gentle fluids. stopped prednisone taper after discussing w/ ortho. Consulted orthopedics - Options have been reviewed with the patient including continuing conservative care versus ultimate surgical fixation. Surgery would involve multilevel lumbar decompression and fusion. This would most likely involve L2 through L5, possible L5-S1 decompression and fusion. Risks, benefits, pros cons and alternatives have been outlined in detail with the patient. She states quality of life is affected daily. Pt wants to pursue surgical intervention. Pt is now s/p surgical procedure stoma fusion L2-L5, w/ Dr. Daniel . Tolerated procedure well 2. Abnormal EKG - pt had T wave inversions on pre-op eval w/anesthesia - there are no EKGs to compare in our system as pt only recently moved here from [place] and [facility] w/ PCP - echo ordered and cardiology consulted for pre-op eval, recommended stress echo - pt underwent stress echo this AM, no signs of inducible ischemia noted 3. Diabetes mellitus type 2. Held pioglitazone initially while inpt. Current A1c 7.8% Cont. home Novolin 70/30 40 units b.i.d. Cont. home Victoza Cont. to closely monitor BS and adjust insulin as needed Follow up as outpt w/ PCP 4. History of hypertension. Continue chlorthalidone. 5. Hyperlipidemia. Continue statin. 6. History of obstructive sleep apnea. Recommend outpatient follow-up/repeat study or obtain outpatient records from [place] 7. Morbid obesity. Less than modifications recommended DVT prophylaxis, SCDs. DISPOSITION: Plan to discharge to [facility]. Total Time Total Time Spent Total Time Spent (In Minutes): 40 Total Time Includes: Examination of the Patient, Discharge Planning, Medication Reconciliation and Communication With Other Providers Discharge Plan Discharge Items Patient Disposition: Transfer Inpatient Rehab Fac Reason For Visit: BACK PAIN Discharge Diagnosis: Lumbar spinal stenosis with radiculopathy s/p surgery Activity: As commented below Non-emergency contact: Primary Care Provider and Surgeon Call non-emergency contact if: you have any medication questions Follow-up/Referrals: Roseanne Cartwright DO [Primary Care Provider] - Diet: Regular Addtl Attending Provider Instructions: ACTIVITY RECOMMENDATIONS: SELF CARE INSTRUCTIONS AFTER THORACIC/LUMBAR FUSIONS 1. You may walk to your tolerance. It is good exercise for your legs and back. Expect some back and intermittent leg aches and pains. 2. You may perform "counter-top" level activities (make a sandwich, dilip with a project, etc.). 3. No bending or lifting of more than 10 pounds or back twisting of any nature (roll like a log when turning in bed). 4. You may ride in a car for 20-30 minutes at a time. No driving until after your first visit with your doctor. 5. Frequent changes of position and restricting sitting to 30 minutes at a time will help limit the amount of back spasms and stiffness you may experience. 6. You may discontinue the use of ambulatory aids (cane, crutches, etc.) once your strength and confidence allow. 7. You may maintenance helper the shower and let water strike your incision when you arrive home at least once daily. Do not take a tub bath, sit in a hot tub or go into a swimming pool until after your first recheck in the office. SPECIAL CARE INSTRUCTIONS: VERY IMPORTANT TO READ AND REVIEW A. Your surgical incision has been closed with a cosmetic suture under the skin that will dissolve in about 6 weeks. In 14 days, you can use a pair of clean scissors and cut the suture that is left outside of the skin at the ends of your incision. 1. The small skin tapes can be removed 7 days after surgery if they have not fallen off by that point. 2. You may keep the wound open to air as much as possible to promote healing after post-op day number 5 unless told otherwise by your doctor. 3. If you think the wound looks like it is becoming infected (redness or worsening drainage) and/or you are experiencing fever, chill or worsening back pain and muscle spasms, contact the office so that we may evaluate you as soon as possible. B. Complications are uncommon, but please contact us if you have any signs or symptoms of: 1. wound infection (fever higher than 102.5 degrees F, redness, separation of wound, drainage, or increasing pain from the incision) 2. blood clots in legs (pain, swelling, redness and warmth in legs) 3. urinary tract infection (fever higher than 102.5 degrees F, burning upon urination or increased frequency of urination) 4. nerve problems (inability to walk on your toes or heels, numbness, loss of bowel or bladder control) 5. any other symptoms that concern you C. Please call the office at if you have any concerns or questions about your operation or recovery. D. No smoking! Smoking drastically decreases the chance of a solid fusion. E. Do not take any anti-inflammatory medications (Indocin, Advil, Motrin, Aspirin, Naprosyn, etc.) as these may inhibit the chance of a solid fusion. Tylenol is okay to take for pain. MANAGING PAIN AFTER SPINAL SURGERY 1. Narcotic medication is intended for short-term use and will be provided for surgical pain. Surgical pain usually lasts for a period of 4-6 weeks. Narcotic medication includes Percocet, Vicodin, Darvocet, Tylenol #3 or Lortab. 2. Longer-term pain is more appropriately treated with non-narcotic medication such as Tylenol ES. 3. Muscle spasm is not appropriately treated with narcotics. Muscle relaxers such as Soma, Flexeril or Skelaxin can be used along with Tylenol ES. 4. Remember that we all live with some "aches and pains". This is not unusual or uncommon after an injury or as we get older. a. Back pain is expected and may include muscle spasms for 4 to 6 weeks after surgery. The pain should gradually improve. If the pain worsens for no apparent reason, please contact the office. b. Intermittent leg pain may also be experienced and should not be concerned about unless it worsens for no apparent reason. If so, please contact the office. 5. We will provide appropriate medication within the normal guidelines of their prescribed use. We will also be very cautious and aware of potential abuse and extended duration of patients' medication needs. a. Pain medications are for your comfort and to assist with sleep and rest so that the tissue can heal. They are not provided in order to return to normal activity and should not be used through the day. To do so or worsening pain at night can result from ongoing tissue damage and development of tolerance to the prescribed medicine. 6. Please allow 2-3 days to process refills. Prescriptions will not be mailed but must be picked up at the office. FOLLOW UP VISIT: Keep your scheduled follow-up appointment. Any questions, please call the office at . Addtl Operations Welder Provider Instructions: Please read instructions from your orthopedic surgeon, above. If you have any questions regarding your surgery or your surgical site, please call [facility] [place] at . Recommend to follow-up with your family doctor 1 week after discharge from [facility]. You will need follow-up for your diabetes and your other chronic medical conditions. Pending Studies at Discharge: No Stand-Alone Forms: My [employer] Skilled Items Patient informed of condition?: Yes DNR: No Discharge Level of Care: Acute rehab Communicable Disease: No Discharge Prognosis: Improving Lines: None Urinary Catheter: No Medications and DC Order Prescriptions: New oxycodone 5 mg tablet 5 mg PO Q6H PRN (Reason: pain, severe) Qty: 30 RF: 0 tramadol 50 mg tablet 50 mg PO Q6H PRN (Reason: pain, moderate) Qty: 30 RF: 0 Continued pioglitazone 15 mg tablet 15 mg PO DAILY RF: 0 prednisone 20 mg tablet 20 mg PO .TAPER UD RF: 0 Novolin 70/30 U-100 Insulin 100 unit/mL (70-30) Suspension 40 unit SUBCUT BID RF: 0 chlorthalidone 25 mg tablet 25 mg PO DAILY RF: 0 acetaminophen [Tylenol Arthritis] 650 mg Tablet Extended Release 1,300 mg PO Q12H RF: 0 baclofen 10 mg tablet 10 mg PO TID RF: 0 simvastatin 20 mg tablet 20 mg PO QPM RF: 0 gabapentin 300 mg capsule 600 mg PO HS RF: 0 gabapentin 300 mg capsule 300 mg PO QAM RF: 0 Centrum Silver Tablet 1 tab PO DAILY RF: 0 Victoza 2-Dedrick 0.6 mg/0.1 mL (18 mg/3 mL) Pen Injector 1.8 mg SUBCUT DAILY RF: 0 Otc Sleep Aide 1 tab PO HS PRN (Reason: Sleep) RF: 0 Discontinued diclofenac sodium 75 mg tablet,delayed release (DR/EC) 75 mg PO BID RF: 0 Krames/Other Patient Handouts: Managing Type 2 Diabetes, Managing Diabetes: The A1C Test Admission Data Admit Date/Time: 02/25/21 22:54 Attending Provider: Casper Bergeron Admit Provider: Abner Daniel Primary Care Provider: Roseanne Cartwright Other Providers: Andrea Carney ; Mikki Strickland ; Miguelina Garnett ; Susi Rai ; Iqra Lucas ; Sheri Cruz ; Mera Machado ; Aakash Laureano ; Elio Guy ; Neptali Mcintyre ; Landry Peña ; Yanet Peña ; Kal Oscar ; Anastasia Stacy ; Enmanuel Sheldon ; Jacky Ruelas ; Mayco Sewell ; Nelson Cruz ; Keisha Parisi ; Pablo Connors ; Yael Castorena ; Brittney Connors ; James Jeffery ; Syl Jacob ; Alonso Castelan ; Kalee Li ; Carla Galeano ; Syl Cabrera ; Tsering Isaac ; Keanu Manley ; Danya Vila ; Shannan Cho ; Brandie Lester ; Aileen Galindo ; Devon Galindo V ; Ellis Stark ; Susi Morris ; Antolin Mcrae ; Ivan Junior ; Julissa Pat ; Shahrzad Schuler ; Devon Demarco ; Aron Parisi ; Ernie Shah ; Sonam Coyle ; Brandie Guillen ; Trent Conley ; Earl Cruz ; Shreya Sims ; Eliazar Swan ; Phyllis Flores ; Ramin Grossman ; Jared Perez ; Abner Daniel ; Poncho Quevedo ; [facility] ; Ana Munoz.
[2021-03-04] MEDS: HYDROmorphone INJ 0.5 MG/0.5 ML SYR IV PRN (11:26)
== END 2021-03-04 17:05 ==
LOC: ED 18:47 → 3N 22:54 → SUATTDRO 22:54 → 3N 02-26 00:40